=== PATIENT | female | born 1970 | race Caucasian/White ===

== ENCOUNTER 2017-03-28 14:59 | Emergency (ER) | payer MEDICAID, SELFPAY ==
[2017-03-28 17:23] VITALS: BP 176/100; PULSE 100; RESP 20; TEMP 36.8; O2SAT 100; BMI 28.7
--- NOTE | 2017-03-28 17:33 | XR_ITS ---
XR wrist RT min 3V HISTORY: Posttraumatic pain ITS.REASON: FELL ORDERING PHYSICIAN: Taty Felton PATIENT AGE: 46 years COMPARISON: None FINDINGS: There is a transverse mildly impacted fracture involving the distal radius 1 cm proximal to the articular surface is minimal dorsal angulation and there is 4 mm dorsal displacement of a dorsal fracture fragment. Nondisplaced distal ulnar fracture also noted 1 cm proximal to the articular surface well-circumscribed calcific density is present along the dorsal aspect of the mid wrist may be due to an old avulsion fracture. IMPRESSION: Mildly displaced distal radial fracture with nondisplaced distal ulnar fracture with mild impaction and dorsal angulation of the distal radial fracture fragment
--- NOTE | 2017-03-28 17:36 | HMH.EDUTC ---
[facility] [place] Clinical Impression: Right distal ulnar fracture Qualifiers: Encounter type: initial encounter Fracture type: closed Fracture morphology: unspecified fracture morphology Qualified Code(s): S52.601A - Unspecified fracture of lower end of right ulna, initial encounter for closed fracture Fracture of right distal radius Qualifiers: Encounter type: initial encounter Fracture type: closed Fracture morphology: unspecified fracture morphology Qualified Code(s): S52.501A - Unspecified fracture of the lower end of right radius, initial encounter for closed fracture Disposition: Home, Self-Care Condition on Discharge: Good Instructions: How to Use a Sling, DI for Wrist Fracture, How To Perform RICE (Rest, Ice, Compress, Elevate), How to Take Care of Your Splint Additional Instructions: * no use of right arm, your job is to keep that hand elevated at all times until you see ortho * Rest * ice 15-20 mins 3-4 times a day * splint until you see ortho. NOT to be removed. Read attached care instructions * Elevate as discussed as much as possible to help reduce swelling and therefore, pain * Ibuprofen every 6 hours as needed for pain and inflammation. If you need something more, you can take tylenol every 4 hours as needed as long as your primary care provider has told you it is ok to take both. Talk to your pain management doctor before taking additional medication due to your pain. Call ortho of your choice first thing tomorrow. Report in [facility]. Dx distal ulnar and radial fractures. Placed in orthoglass splint and told to follow up FRIEDA Referrals: Branden Reeves [Primary Care Provider] - ( Call ortho of your choice first thing tomorrow. If you can't get in, see primary care. Report in [facility]. Dx distal ulnar and radial fractures. Placed in orthoglass splint and told to follow up FRIEDA) Time of Disposition: 18:53 Medical Decision Making Vital Signs: 03/28/17 17:23 Temperature 98.3 F Temperature Source Temporal Artery Scan Pulse Rate [Left] 100 H Respiratory Rate 20 Blood Pressure [Right Arm] 176/100 Blood Pressure Mean [Right Arm] 125 Blood Pressure Source [Right Arm] Automatic Cuff Blood Pressure Position [Right Arm] Sitting 02 Sat by Pulse Oximetry 100 Oxygen Delivery Method Room Air Orders (Tests/Meds): ORDERS Category Date Time Status XR wrist RT min 3V Stat Exams 03/28/17 17:33 Taken - Radiology Data #1 Image(s): Wrist (right) xray was rvwd by me with BRUCE Douglas MD.....distal ulnar and radial fractures - Bryan Inquiry Pt receiving controlled substance: No [facility] - General Stated complaint: AO [id number] FELL HURT R WRIST Time Seen by Provider: 03/28/17 17:36 Mode of Arrival: Wheelchair Source of Information: Patient Limitations: Physical Limitations Description of Symptoms (Recalled from Triage Doc. by RN): FELL IN BATHROOM YESTERDAY, PAIN SWELLING RIGHT WRIST HEENT Symptoms (Recalled from RN notes): No Resp Symptoms (Recalled from RN notes): No Skin Symptoms (Recalled from RN notes): No MS Symptoms (Recalled from RN notes): Yes Functional Status (Recalled from RN notes): N - History of Present Illness Provider Complaint: c/o right wrist pain and swelling. reports she fell the night before last at 2am. On crutches due to a bad right hip that she is waiting on surgery for. Crutches slipped and she fell catching self with right hand. No immediate pain. I am on so much medication I guess it just didn't hurt and I went back to sleep . Reports so much swelling yesterday so she figured we wouldn't see anything on xray and instead of coming in, iced it at home. Denies N/T. Limited ROM all digits more because of the swelling then the pain . Initially reports taking all kind of medications for pain then later reports only taking ibuprofen. Home meds include clonazepam, clonidine, flexeril, dicolofena, furosemide, gabapentin, intelence, lamictal, norvir, zo
== END 2017-03-28 18:54 | disposition home or self-care (01) ==
PROVIDERS: Emergency Provider Nurse Practitioner Family; Family Provider Emergency Medicine; PCP Family Medicine
DX: S52.601A Unspecified fracture of lower end of right ulna, initial encounter for closed fracture (principal); S52.501A Unspecified fracture of the lower end of right radius, initial encounter for closed fracture; I10 Essential (primary) hypertension; F17.210 Nicotine dependence, cigarettes, uncomplicated; F41.8 Other specified anxiety disorders; Z79.899 Other long term (current) drug therapy; Z88.1 Allergy status to other antibiotic agents; Z88.6 Allergy status to analgesic agent; W01.0XXA Fall on same level from slipping, tripping and stumbling without subsequent striking against object, initial encounter; Y92.019 Unspecified place in single-family (private) house as the place of occurrence of the external cause
CPT/HCPCS: 29125; 73110; 99202; 99281

== ENCOUNTER 2017-04-24 09:28 | Emergency (ER) | payer MEDICAID, SELFPAY ==
[2017-04-24 09:40] VITALS: BP 145/94; PULSE 85; RESP 18; TEMP 36.8; O2SAT 98; BMI 27.3
--- NOTE | 2017-04-24 09:40 | HMH.EDGENADL ---
ED Disposition Clinical Impression: Fracture of wrist, Right distal ulnar fracture, Fracture of right distal radius, Multiple contusions Disposition: Home, Self-Care Condition on Discharge: Good Additional Instructions: Your orthopedic surgeon at the [facility] for further management and evaluation. Bring your disc. Continue to keep your splint in place. All current medications. - Critical Care Critical Care Time: No Attestation: On , the high probability of a clinically significant, sudden or life threatening deterioration of the following system(s) required my full and direct attention, intervention and personal management. The time I documented below is in addition to time spent performing reported procedures but includes the following listed in this critical care notation. Medical Decision Making Vital Signs: 04/24/17 09:40 Temperature 98.2 F Temperature Source Temporal Artery Scan Pulse Rate [Right Brachial] 85 Respiratory Rate 18 Blood Pressure [Right Arm] 145/94 Blood Pressure Mean [Right Arm] 111 Blood Pressure Source [Right Arm] Automatic Cuff Blood Pressure Position [Right Arm] Sitting 02 Sat by Pulse Oximetry 98 Oxygen Delivery Method Room Air - Lab Data Lab results reviewed: Yes: I reviewed the patient's lab results. - Radiology Data #1 Image(s): Wrist, Pelvis, Ankle Image Reviewed: Yes I reviewed the patient's radiology results, Yes I have reviewed radiologist's interpretation Preliminary Findings: Abnormal Avascular necrosis of right hip, with history of same. Acute fracture of left tibia with history of same. Right radius and ulna fractures with history of same, with reinjury today with minimal displacement;disc provided to patient so she may bring it to her orthopedic surgeon for further review. - Bryan Inquiry Pt receiving controlled substance: No General Adult HPI - General Stated complaint: ao 04/20/17 fell pain wrist hip pelvis left ankle Mode of Arrival: Ambulatory Source of Information: Patient Limitations: No Limitations - History of Present Illness HPI narrative: She states that she has a chronically dislocated right hip, for which she will undergo definitive surgery in May of this year at the [facility]. She is either in a power chair, uses a rolling walker, or crutches. Days that she fell 6 weeks ago and fractured her wrist, which is currently in a cast. [id number]. Has DJD with frequent falls. States fell 4 days ago while ambulating between house and car. She reports negative LOC. She is complaining of right wrist pain diffusely, chronic pelvis pain, and left ankle pain. No new neurological symptoms. Ambulatory with crutches. She is requesting refill for albuterol. He has no fever or chills. Flu symptoms. Has chronic cough. Chronic tobacco abuse until recently. 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 - Related Data Home Medications Medication Instructions Recorded Confirmed Cyclobenzaprine HCl [Flexeril 10mg 10 mg PO BID 03/28/17 03/28/17 tablet] LORazepam [Ativan] 0.5 mg PO BID 03/28/17 04/24/17 Allergies Allergy/AdvReac Type Severity Reaction Status Date / Time aspirin [ASPIRIN] Allergy Unknown TOLD TO Verified 03/28/17 17:31 AVOID R/T LIVER FUNCTION clindamycin [CLINDAMYCIN] Allergy Unknown I-HIVES Verified 03/28/17 17:31 meloxicam [MELOXICAM] Allergy Unknown TOLD TO Verified 03/28/17 17:31 AVOID D/T KIDNEY AND LIVER FUNCTION tramadol [TRAMADOL] Allergy Unknown SWELLS Verified 03/28/17 17:31 THROAT [facility] History Medical History: Denies:: Diabetes Mellitus Type 1, Diabetes Mellitus Type 2 - *Social History Smoking Status: Current every day smoker Tobacco Type: cigarettes Alcohol Intake: never ROS Obtained: Yes All systems reviewed & no additional complaints - Allergic/Immunologic Allergic/Immunologic: Reports other (History of chronic HI
--- NOTE | 2017-04-24 09:54 | ED_ITS ---
ED Disposition Clinical Impression: Fracture of wrist, Right distal ulnar fracture, Fracture of right distal radius , Multiple contusions Disposition: Home, Self-Care Condition on Discharge: Good Additional Instructions: Your orthopedic surgeon at the [facility] for further management and evaluation. Bring your disc. Continue to keep your splint in place. All current medications. - Critical Care Critical Care Time: No Attestation: On , the high probability of a clinically significant, sudden or life threatening deterioration of the following system(s) required my full and direct attention, intervention and personal management. The time I documented below is in addition to time spent performing reported procedures but includes the following listed in this critical care notation. Medical Decision Making Vital Signs: 04/24/17 09:40 Temperature 98.2 F Temperature Source Temporal Artery Scan Pulse Rate [Right Brachial] 85 Respiratory Rate 18 Blood Pressure [Right Arm] 145/94 Blood Pressure Mean [Right Arm] 111 Blood Pressure Source [Right Arm] Automatic Cuff Blood Pressure Position [Right Arm] Sitting 02 Sat by Pulse Oximetry 98 Oxygen Delivery Method Room Air - Lab Data Lab results reviewed: Yes: I reviewed the patient's lab results. - Radiology Data #1 Image(s): Wrist, Pelvis, Ankle Image Reviewed: Yes I reviewed the patient's radiology results, Yes I have reviewed radiologist's interpretation Preliminary Findings: Abnormal Avascular necrosis of right hip, with history of same. Acute fracture of left tibia with history of same. Right radius and ulna fractures with history of same, with reinjury today with minimal displacement;disc provided to patient so she may bring it to her orthopedic surgeon for further review. - Bryan Inquiry Pt receiving controlled substance: No General Adult HPI - General Stated complaint: ao 04/20/17 fell pain wrist hip pelvis left ankle Mode of Arrival: Ambulatory Source of Information: Patient Limitations: No Limitations - History of Present Illness HPI narrative: She states that she has a chronically dislocated right hip, for which she will undergo definitive surgery in May of this year at the [facility]. She is either in a power chair, uses a rolling walker, or crutches. Days that she fell 6 weeks ago and fractured her wrist, which is currently in a cast. [id number]. Has DJD with frequent falls. States fell 4 days ago while ambulating between house and car. She reports negative LOC. She is complaining of right wrist pain diffusely, chronic pelvis pain, and left ankle pain. No new neurological symptoms. Ambulatory with crutches. She is requesting refill for albuterol. He has no fever or chills. Flu symptoms. Has chronic cough. Chronic tobacco abuse until recently. 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 - Related Data Home Medications Medication Instructions Recorded Confirmed Cyclobenzaprine HCl [Flexeril 10mg 10 mg PO BID 03/28/17 03/28/17 tablet] LORazepam [Ativan] 0.5 mg PO BID 03/28/17 04/24/17 Allergies Allergy/AdvReac Type Severity Reaction Status Date / Time aspirin [ASPIRIN] Allergy Unknown TOLD TO Verified 03/28/17 17:31 AVOID R/T LIVER FUNCTION clindamycin [CLINDAMYCIN] Allergy Unknown I-HIVES Verified 03/28/17 17:31
--- NOTE | 2017-04-24 09:55 | XR_ITS ---
XR ankle LT min 3V HISTORY: Pain following injury ITS.REASON: fall ORDERING PHYSICIAN: Rola Hidalgo MD PATIENT AGE: 46 years COMPARISON: 01/04/2016 FINDINGS: There are no recent exams available for comparison. There is a nondisplaced fracture involving the anterior distal aspect of the tibia as well as the base of the medial malleolus. Mottled decreased density is present involving the anterior distal tibia and medial malleolus. Healing fractures noted involving the anterior distal tibia 3.7 cm proximal to the articular surface. Mottled decreased density involves the distal fibula as well as the calcaneus and tarsal bones which may be due to disuse osteoporosis. Please correlate with more recent exams which are not available at this institution. On the lateral view there is a fragment of the distal tibia which measures 13 x 9 mm slightly rotated. This involves articular surface of the distal tibia. IMPRESSION: Nondisplaced fractures of the distal tibia anteriorly and at the base of the medial malleolus. These do not appear hyperacute but may be subacute with an older fracture of the anterior distal tibia 4 cm proximal to the articular surface. Correlation with more recent older films is needed
--- NOTE | 2017-04-24 09:56 | XR_ITS ---
XR pelvis min 3V HISTORY: Right hip pain ITS.REASON: chronically dislocated R hip ORDERING PHYSICIAN: Rola Hidalgo MD PATIENT AGE: 46 years COMPARISON: 11/07/2016 FINDINGS: Patient has known avascular necrosis of the right femoral head which is somewhat progressed compared to the previous exam with further collapse of the femoral head. There is mild lateral subluxation of the femoral head is well more prominent on today's exam. The left hip has an unremarkable appearance. IMPRESSION: Worsening avascular necrosis of the right femoral head with increasing collapse of the femoral head with dystrophic changes and mild lateral subluxation of the femur.
--- NOTE | 2017-04-24 09:56 | XR_ITS ---
XR wrist RT min 3V HISTORY: Pain following 3 injury, patient with known fracture, prior close reduction ITS.REASON: fell with cast on ORDERING PHYSICIAN: Rola Hidalgo MD PATIENT AGE: 46 years COMPARISON: 03/28/2017 FINDINGS: Nondisplaced fractures are present involving the distal radius and ulna which are obscured by the overlying cast. The lateral aspect of the distal radial fracture appears slightly more displaced on today's exam compared to the previous study. There is a longitudinal component of the distal radial fracture does appear to extend into the articular surface distally which is also somewhat more prominent on today's exam. Distal ulnar fractures not significant change. IMPRESSION: Distal radial and ulnar fractures. There is now noted some mild lateral displacement of the distal arm fracture and a longitudinal fracture of the distal ulna is somewhat more apparent compared to the previous study. These findings suggest re-injury
[2017-04-24 12:21] VITALS: BP 113/93; PULSE 100; RESP 19; O2SAT 95
[2017-04-24 12:25] VITALS: BP 129/80; PULSE 82; RESP 16
== END 2017-04-24 12:24 | disposition home or self-care (01) ==
PROVIDERS: Emergency Provider Emergency Medicine; Family Provider Emergency Medicine; PCP Family Medicine
DX: S52.601A Unspecified fracture of lower end of right ulna, initial encounter for closed fracture (principal); S52.501A Unspecified fracture of the lower end of right radius, initial encounter for closed fracture; T07.XXXA Unspecified multiple injuries, initial encounter; R05 Cough; Z79.82 Long term (current) use of aspirin; F17.210 Nicotine dependence, cigarettes, uncomplicated; E10.9 Type 1 diabetes mellitus without complications
CPT/HCPCS: 72190; 73110; 73610; 99282

== ENCOUNTER → 2017-07-16 10:36 | Outpatient (CLI) | payer MEDICAID, SELFPAY ==
--- NOTE | 2017-07-16 10:38 | MM_ITS ---
. MM Dig screening mamm BI w/CAD CAD Screening ORDERING PHYSICIAN : Mian Jones MD PATIENT AGE: 47 years GENDER: Female COMPARISON: Previous mammograms: May 2012 and August 2011 INDICATION: 47-year-old. Takes estradiol 3 years.. No new complaints. Patient states has lost 33 pounds since previous mammogram in 2013 Family history. Maternal recommend mother and maternal aunt with breast cancer TECHNIQUE: Standard CC and MLO images were obtained. R2 CAD reviewed. FINDINGS: ===== Moderate fibroglandular elements throughout central breast bilateral. Overall Moderate breast density fibroglandular elements are less dense than on 2012 study. No dominant mass nor suspicious calcifications in either breast. Similar architecture pattern with no architectural distortion. RIGHT BREAST. No significant new findings Benign vascular and scattered dense benign calcifications.. LEFT BREAST:No significant new findings. Inhomogeneous architecture is similar to previous studies no new areas of significant concern IMPRESSION: ===== No new areas of significant concern either breast. Overall stable mammogram. Bilateral follow-up in one year recommended. BI-RADS Category: 1 Negative RECOMMENDED FOLLOW-UP: 1YR - 1 YEAR FOLLOW-UP (A letter has been sent to the patient regarding results of the study.)
== END ==
PROVIDERS: Family Provider Emergency Medicine; PCP Family Medicine; Visit Provider Obstetrics & Gynecology
DX: Z12.31 Encounter for screening mammogram for malignant neoplasm of breast (principal)
CPT/HCPCS: 77067

== ENCOUNTER 2017-09-02 09:31 | Outpatient (RCR) | payer MEDICAID, SELFPAY ==
--- NOTE | 2017-09-02 10:09 | HMH.PTOPEV ---
PT Outpatient Evaluation Rehab PT Outpatient Evaluation Start: 09/02/17 10:00 Freq: Status: Active Protocol: Document 09/02/17 10:00 SREEKANTH (Rec: 09/02/17 10:08 SREEKANTH [id number]) Electronically Signed By Roc Felton, PT 09/02/17 10:00 Outpatient Therapy Subjective History Subjective History Pt presents s/p R DANICA on for residual pain and weakness. Pt reports fx'ing L ankle ~2 weeks after sx. on R hip which has limited her ability to rehab the R hip. Pt reports 'I'm supposed to be getting a boot for the left ankle very soon' wich could allow for more functional activities. PMH:HIV, neuropathy, OA, osteoporosis Chief Complaint Pain Stiff Weakness Symptom Type Ache Throb Sharp Dull Symptoms Relieved By Rest/Positioning Heat Symptoms Aggravated By Standing Walking Prior Functional Limitations None Current Functional Limitations Housework Standing Walking Stairs Symptom Description Constant and Continuous Level of pain today (0-10) 10 Pain scale - at its best (0-10) 7 Pain scale - at its worst (0-10) 10 Hip/Knee Eval Gait Observation General Gait Pattern Observation Antalgic Gait Wide Based Gait Shuffling Step Decrease Weight Bear (L) Assistive Device Assistive Devices None / NA Palpation Tenderness right Knee Palpation Overall Comment 3/4 Hip Palpation Findings Tenderness MMT left Hip Flexion Strength Grade 4 Good Hip Abduction Strength Grade 4 Good Hip Adduction Strength Grade 4 Good Hip Extension Strength Grade 4 Good Knee Extension Strength Grade 5 Normal Knee Flexion Strength Grade 5 Normal right Hip Flexion Strength Grade 3 Fair Hip Abduction Strength Grade 3- Fair- Hip Adduction Strength Grade 3- Fair- Hip Extension Strength Grade 3 Fair Knee Extension Strength Grade 4 Good Knee Flexion Strength Grade 3+ Fair+ ROM left Hip Flexion w/Knee Flexed Active Range 0-90 of Motion (degrees)
== END 2017-09-02 09:32 | disposition home or self-care (01) ==
LOC: PT 09:31
PROVIDERS: Family Provider Emergency Medicine; PCP Emergency Medicine; Visit Provider Emergency Medicine
DX: M25.551 Pain in right hip (principal)
CPT/HCPCS: 97163

== ENCOUNTER 2017-12-17 09:30 | Outpatient (RCR) | payer MEDICAID, SELFPAY ==
--- NOTE | 2017-11-18 09:41 | HMH.PTOPEV ---
PT Outpatient Evaluation Rehab PT Outpatient Evaluation Start: 11/18/17 09:32 Freq: Status: Active Protocol: Document 11/18/17 09:33 SREEKANTH (Rec: 11/18/17 09:41 SREEKANTH [id number]) Electronically Signed By Roc Felton, PT 11/18/17 09:33 Outpatient Therapy Subjective History Subjective History Pt reports h/o B LE weakness d /t R DANICA 06/12/17, fx'd L ankle June 2017, and Fx'd R wrist August 2017. Pt reports injuries and sx. have decreased ability to tolerate wt. bearing activities, and have caused mm atrophy. Pt reports pain currently in R hip and L ankle. PMH:HIV, osteoporosis Chief Complaint Pain Weakness Symptom Type Ache Sharp Dull Symptoms Relieved By Prescription Meds Symptoms Aggravated By Standing Physical Activity Walking Lifting Prior Functional Limitations Lifting Housework Standing Walking Stairs Current Functional Limitations Lifting Housework Standing Walking Stairs Symptom Description Constant and Continuous Level of pain today (0-10) 9 Pain scale - at its best (0-10) 9 Pain scale - at its worst (0-10) 10 Hip/Knee Eval Gait Observation General Gait Pattern Observation Antalgic Gait Wide Based Gait Shuffling Step Assistive Device Assistive Devices Wheelchair Palpation Tenderness left Knee Palpation Finding Tenderness Knee Palpation Overall Comment L ANKLE 2-3/4 right Hip Palpation Findings Tenderness MMT bilateral Hip Flexion Strength Grade 3- Fair- Hip Abduction Strength Grade 3- Fair- Hip Adduction Strength Grade 3- Fair- Hip Extension Strength Grade 3 Fair Hip External Rotation Strength Grade 3+ Fair+ Hip Internal Rotation Strength Grade 3+ Fair+ Knee Extension Strength Grade 4 Good Knee Flexion Strength Grade 4- Good- ROM Hip Flexion w/Knee Flexed Passive Range 0-90 of Motion (degrees) Knee Extension Passive Range of Motion ( 0-120 degrees) Outpatient Therapy Ass
--- NOTE | 2017-12-17 09:52 | HMH.RHREAS ---
Rehab Reassessment Rehab OP Re-assessment Start: 12/17/17 09:47 Freq: Status: Active Protocol: Document 12/17/17 09:47 [email or web address] (Rec: 12/17/17 09:52 RADHALALY [id number]) Electronically Signed By Roc Felton, PT 12/17/17 09:47 Rehab Re-assessment Subjective Subjective PT REPORTS 6/10 PAIN IN B LE'S ON VAS, AND FEELS 40% BETTER OVERALL SINCE I EVAL Objective Objective Notes AROM: R HIP FLX 0-100 MMT: R HIP FLX 4/5, L HIP FLX 4+/5, KNEE EXT B 4+/5, B KNEE FLX 4+/5, L ANKLE DF 4/5, L ANKLE 4-/5 TTP: L ANKLE 2/4 TUSEC W/O AD Assessment Progress Assessment Progressing as Expected Assessment Notes PT W/IMPROVED STRENGTH, ROM , AND TTP Patient goals met STG'S 05/28 LTG'S 04/01 Goals Not Met STG'S 05/28, LTG'S 09/29 Plan Plan Pt to cont. w/skilled PT to make further improvements in ROM, strength, and TTP to allow for optimal function Frequency of Therapy 1-2x/wk Duration of therapy 3-4wks Time and Billing Re-Eval Time 15 Re-Eval Billing Units 1 PHYSICIAN CERTIFICATION: I certify the specified therapy services for Katiuska Vasquez are required, authorized, and reviewed every 30 days.
== END 2017-12-17 09:31 | disposition home or self-care (01) ==
LOC: PT 09:30
PROVIDERS: Family Provider Emergency Medicine; PCP Emergency Medicine; Visit Provider Emergency Medicine
DX: Z96.641 Presence of right artificial hip joint (principal); M25.551 Pain in right hip
CPT/HCPCS: 97110; 97163; 97164

== ENCOUNTER → 2018-06-09 13:55 | Outpatient (CLI) | payer MEDICAID, SELFPAY ==
[2018-06-09 14:39] LABS: Amphetamine/Metha Screen,Urine Negative ng/mL (<1000); Barbiturates Screen,Urine Negative ng/mL (<200); Benzodiazepines Screen,Urine Negative ng/mL (<200); Cannabinoid Screen,Urine Negative ng/mL (<50); Cocaine Screen,Urine Negative ng/mL (<300); Methadone Screen,Urine Negative ng/mL (<300); Opiate Screen,Urine Positive ng/mL (<300); Phencyclidine Screen,Urine Negative ng/mL (<25)
== END ==
PROVIDERS: Visit Provider Emergency Medicine
DX: Z79.899 Other long term (current) drug therapy (principal)
CPT/HCPCS: 80305

== ENCOUNTER 2020-11-27 17:22 | Emergency (ER) | payer MEDICAID, SELFPAY ==
[2020-11-27 17:30] VITALS: BP 226/131; PULSE 111; RESP 20; TEMP 36.8; O2SAT 98; BMI 21.6
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
--- NOTE | 2020-11-27 17:56 | PC.NURSE ---
PATIENT SENT TO ER PER Sven MOSHER APRN FOR FURTHER EVALUATION
[2020-11-27 18:00] VITALS: BP 174/88; PULSE 87; RESP 20; TEMP 36.7; O2SAT 99; BMI 21.9
--- NOTE | 2020-11-27 19:32 | ECG_ITS ---
APPROVED REPORT Exam: Resting ECG HR:74 bpm ECG Measurements Heart Rate 74 AXES AZ 132 P 60 QRSd 82 QRS 63 QT 410 T 60 QTc 455 Conclusion Normal sinus rhythm Possible Left atrial enlargement Left ventricular hypertrophy Abnormal ECG Electronically signed by : Nikos Wilson MD 11/28/2020 20:39:39
--- NOTE | 2020-11-27 19:35 | HMH.EDGENADL ---
ED Disposition Clinical Impression: Anxiety, Acute anxiety Disposition: Home, Self-Care Condition on Discharge: Fair Instructions: Anxiety Disorders Referrals: Flaco Ayoub MD [Primary Care Provider] - - Critical Care Critical Care Time: No Attestation: On 11/27/20, the high probability of a clinically significant, sudden or life threatening deterioration of the following system(s) required my full and direct attention, intervention and personal management. The time I documented below is in addition to time spent performing reported procedures but includes the following listed in this critical care notation. Medical Decision Making - Bryan Inquiry Pt receiving controlled substance: No Vital Signs: 11/27/20 17:30 11/27/20 18:00 Temperature 98.2 F 98.1 F Temperature Source Temporal Artery Scan Oral Pulse Rate [Left Brachial] 111 H 87 Respiratory Rate 20 20 Blood Pressure [Left Arm] 226/131 H 174/88 H Blood Pressure Mean [Left Arm] 162 116 Blood Pressure Source [Left Arm] Automatic Cuff Blood Pressure Position [Left Arm] Sitting 02 Sat by Pulse Oximetry 98 99 Oxygen Delivery Method Room Air Room Air - Lab Data Lab Results 11/27/20 19:45: WBC 6.9, RBC 3.62 L, Hgb 13.4, Hct 40.1, MCV 110.8 H, MCH 37.0 H, MCHC 33.4, RDW 13.0, Plt Count 161, MPV 8.3, Neut % (Auto) 56.7, Lymph % (Auto) 37.4, Noble % (Auto) 3.9, Eos % (Auto) 1.5, Baso % (Auto) 0.5, Neut # (Auto) 3.9, Lymph # (Auto) 2.6, Noble # (Auto) 0.3, Eos # (Auto) 0.1, Baso # (Auto) 0.0 11/27/20 19:45: Sodium 142, Potassium 3.6, Chloride 104, Carbon Dioxide 26, Anion Gap 15.6 H, BUN 10, Creatinine 0.60, Estimated Creat Clear 100, Estimated GFR 106, Est GFR ( Amer) 128, Glucose 96, Calcium 9.0, Total Bilirubin 0.2, AST 30, ALT 26, Alkaline Phosphatase 87, Troponin I < 0.01, Total Protein 7.8, Albumin 4.3, Globulin 3.5 H, Albumin/Globulin Ratio 1.2 11/27/20 19:45: D-Dimer 0.40 Result diagrams: 11/27/20 19:45 11/27/20 19:45 Orders (Tests/Meds): ED MEDICATIONS Generic Name Dose Route Start Last Admin Trade Name Freq PRN Reason Stop Dose Admin Sodium Chloride 10 ml 11/27/20 19:32 Sodium Chloride 0.9% 10ml Vial IV 12/27/20 19:31 NEEDED PRN to Dilute Lorazepam inj Discontinued Medications Generic Name Dose Route Start Last Admin Trade Name Freq PRN Reason Stop Dose Admin Lorazepam 2 mg 11/27/20 19:32 11/27/20 19:38 Lorazepam 2mg/Ml Vial IV 11/27/20 19:33 2 mg ONCE ONE Administration ORDERS Category Date Time Status Troponin I Q3H Lab 11/27/20 22:45 Ordered Troponin I Q3H Lab 11/28/20 01:45 Ordered ECG Request by /Glenna Stat Y 11/27/20 19:32 Stop Req - SOFY Score for Non-Stemi Age of Patient: 50-59 years old Heart Rate: 110-149 bpm Systolic Blood Pressure: 160-199 mmHg Serum Creatinine: 0.40-0.79 mg/dl CHF [place] Class: I-No CHF Other Risk Factors: None Non-Stemi Risk Score: 79 General Adult HPI - General Chief complaint: Anxiety Stated complaint: anxiety attack Time Seen by Provider: 11/27/20 17:44 Mode of Arrival: Ambulatory Source of Information: Patient Limitations: No Limitations Description of Symptoms (Recalled from ER Triage Doc. by RN): PT C/O ANXIETY & PANIC ATTACKS x2 WEEKS. STATES SHE RECENTLY MOVED HERE 4 DAYS AGO & IT HAS BEEN A STRESSFUL TIME. HX PSYCH - History of Present Illness HPI narrative: His presenting to the emergency department with chief complaint of anxiety. Patient states that she when she gets anxious her chest hurts. She noticed a fluttering in her chest, feels like her heart is beating rapidly. She is also complaining of left-sided chest pain. She does have some associated dyspnea, but has had no cough. Chest pain occurs when she gets anxious, but she does not notice it with exertion. She was previously on clonidine however she was taken off it about 3 weeks ago. She does have a psychiatrist in [place] who recently told her to start taking r
[2020-11-27 19:53] LABS: Basophils % 0.5 % (0.1-2.0); Eosinophils # 0.1 K/mm3 (0.0-0.4); Eosinophils % 1.5 % (0.1-12.0); Hematocrit 40.1 % (37.0-47.0); Hemoglobin 13.4 g/dL (12.2-16.2); Lymphocytes # 2.6 K/mm3 (0.7-4.5); Lymphocytes % 37.4 % (10-50); Mean Corpuscular HGB Conc 33.4 g/dL (31.8-35.4); Mean Corpuscular Volume 110.8 fl (81-99); Mean Platelet Volume 8.3 fl (7.4-10.4); Monocytes # 0.3 K/mm3 (0.1-1.0); Monocytes % 3.9 % (1.7-9.3); Neutrophils # 3.9 K/mm3 (1.8-7.8); Neutrophils % 56.7 % (37.0-80.0); Platelet Count 161 K/mm3 (142-424); Red Blood Count 3.62 M/mm3 (4.20-5.40); White Blood Count 6.9 K/mm3 (4.8-10.8)
[2020-11-27 20:00] LABS: Alanine Aminotransferase 26 U/L (12-78); Albumin Level 4.3 g/dl (3.5-5.0); Albumin/Globulin Ratio 1.2 (1.1-1.8); Alkaline Phosphatase 87 U/L (38-126); Anion Gap 15.6 mEq/L (5-15); Aspartate Amino Transferase 30 U/L (14-36); Bilirubin,Total 0.2 mg/dl (0.2-1.3); Blood Urea Nitrogen 10 mg/dl (7-17); Carbon Dioxide 26 mmol/L (22.0-30.0); Chloride 104 mmol/L (98-107); Creatinine Clearance Estimated 100 mL/min (50-200); Estimated Glomerular Filt Rate 106 ml/min (>60); GFR (African American) 128 ML/MIN (>60); Globulin 3.5 g/dL (1.3-3.2); Glucose 96 mg/dl (74-100); Potassium 3.6 mmoL/L (3.5-5.1); Sodium 142 mmol/L (136-145); Total Protein,Serum 7.8 g/dl (6.3-8.2)
[2020-11-27 20:17] LABS: Troponin I < 0.01 ng/ml (0.00-0.034)
[2020-11-27 20:39] VITALS: BP 143/74; PULSE 79; RESP 20; TEMP 36.7; O2SAT 99
== END 2020-11-27 20:44 | disposition home or self-care (01) ==
LOC: UTC 17:37 → ER 17:46
PROVIDERS: Emergency Provider Emergency Medicine; PCP Emergency Medicine
DX: F41.8 Other specified anxiety disorders (principal); F43.0 Acute stress reaction; K21.9 Gastro-esophageal reflux disease without esophagitis; I25.2 Old myocardial infarction; F17.290 Nicotine dependence, other tobacco product, uncomplicated; Z79.899 Other long term (current) drug therapy
CPT/HCPCS: 80053; 84484; 85025; 85378; 93005; 96375; 99283

== ENCOUNTER 2020-11-30 14:17 | Emergency (ER) | payer MEDICAID, SELFPAY ==
[2020-11-30 14:19] VITALS: BP 200/100; PULSE 110; RESP 20; TEMP 36.4; O2SAT 98; BMI 21.9
--- NOTE | 2020-11-30 14:19 | HMH.EDANX ---
ED Disposition Clinical Impression: Anxiety Alcohol intoxication Qualifiers: Complication of substance-induced condition: uncomplicated Qualified Code(s): F10.920 - Alcohol use, unspecified with intoxication, uncomplicated Disposition: Home, Self-Care Condition on Discharge: Fair Instructions: Anxiety Disorders, DI for Alcohol Use Disorder Referrals: Provider,Referral, MD [Primary Care Provider] - 7-14 days - Critical Care Critical Care Time: No Attestation: On , the high probability of a clinically significant, sudden or life threatening deterioration of the following system(s) required my full and direct attention, intervention and personal management. The time I documented below is in addition to time spent performing reported procedures but includes the following listed in this critical care notation. Medical Decision Making - Medical Records Medical records reviewed: Yes: I reviewed the patient's medical records. - Bryan Inquiry Pt receiving controlled substance: No Vital Signs: 11/30/20 14:19 11/30/20 15:00 Temperature 97.6 F Temperature Source Oral Pulse Rate 110 H Pulse Rate [Left Radial] 110 H Respiratory Rate 20 Blood Pressure 128/73 Blood Pressure [Right Arm] 200/100 H Blood Pressure Mean 91 Blood Pressure Mean [Right Arm] 133 Blood Pressure Source [Right Arm] Automatic Cuff Blood Pressure Position [Right Arm] Sitting 02 Sat by Pulse Oximetry 98 97 Oxygen Delivery Method Room Air - Lab Data Lab Results 11/30/20 14:30: WBC 10.6 D, RBC 3.93 L, Hgb 14.4, Hct 43.4, MCV 110.4 H, MCH 36.7 H, MCHC 33.2, RDW 13.2, Plt Count 241 D, MPV 8.5, Neut % (Auto) 50.7, Lymph % (Auto) 44.7, [place] % (Auto) 3.3, Eos % (Auto) 0.6, Baso % (Auto) 0.6, Neut # (Auto) 5.4, Lymph # (Auto) 4.7 H, Bath # (Auto) 0.4, Eos # (Auto) 0.1, Baso # (Auto) 0.1 11/30/20 14:30: Sodium 143, Potassium 4.3, Chloride 107, Carbon Dioxide 21 L, Anion Gap 19.3 H, BUN 7 D, Creatinine 0.50 L, Estimated Creat Clear 120, Estimated GFR 131, Est GFR ( Amer) 158 D, Glucose 147 H, Calcium 9.3, Total Bilirubin 0.3, AST 34, ALT 21, Alkaline Phosphatase 81, Total Protein 8.1, Albumin 4.5, Globulin 3.6 H, Albumin/Globulin Ratio 1.3 11/30/20 14:30: Plasma/Serum Alcohol 245 H 11/30/20 14:30: TSH 2.12, Free T4 Index 2.4 L, Thyroxine (T4) 8.8, T3 Uptake 27 11/30/20 17:20: Urine Color Straw, Urine Appearance Clear, Urine pH 6.0, Ur Specific [place] <= 1.005, Urine Protein Negative, Urine Glucose (UA) Negative, Urine Ketones Negative, Urine Blood Negative, Urine Nitrate Negative, Urine Bilirubin Negative, Urine Urobilinogen 0.2, Ur Leukocyte Esterase Negative, Urine RBC None, Urine WBC None, Ur Squamous Epith Cells None, Urine Bacteria None 11/30/20 17:20: Urine Opiates Screen Negative, Urine Methadone Screen Negative, Ur Barbituates Screen Negative, Ur Phencyclidine Scrn Negative, Ur Amphetamines Screen Negative, U Benzodiazepines Scrn Negative, Urine Cocaine Screen Negative, U Marijuana (THC) Screen Negative Result diagrams: 11/30/20 14:30 11/30/20 14:30 Orders (Tests/Meds): ED MEDICATIONS Discontinued Medications Generic Name Dose Route Start Last Admin Trade Name Rob PRN Reason Stop Dose Admin Acetaminophen 650 mg 11/30/20 17:16 11/30/20 17:17 Acetaminophen 325mg Tab PO 11/30/20 17:17 650 mg ONCE ONE Administration Haloperidol Lactate 3 mg 11/30/20 14:23 11/30/20 14:36 Haloperidol Lactate 5 Mg/Ml Vial IV 11/30/20 14:24 3 mg ONCE ONE Administration - Reevaluation(s) Time: 15:36 Reevaluation #1: Does not resting comfortably. It seems that she has had a favorable response to the 3 mg of Haldol given to her. Medical Decision Narrative: The patient had her work-up in the emergency department which did not reveal any life-threatening or dangerous conditions. The patient appears to be intoxicated with alcohol. A urine drug screen was negative. The remainder of her work-up was unremarkabl
[2020-11-30 14:53] LABS: Basophils # 0.1 K/mm3 (0-0.2); Basophils % 0.6 % (0.1-2.0); Eosinophils # 0.1 K/mm3 (0.0-0.4); Eosinophils % 0.6 % (0.1-12.0); Hematocrit 43.4 % (37.0-47.0); Hemoglobin 14.4 g/dL (12.2-16.2); Lymphocytes # 4.7 K/mm3 (0.7-4.5); Lymphocytes % 44.7 % (10-50); Mean Corpuscular HGB Conc 33.2 g/dL (31.8-35.4); Mean Corpuscular Hemoglobin 36.7 pg (27.0-31.2); Mean Corpuscular Volume 110.4 fl (81-99); Mean Platelet Volume 8.5 fl (7.4-10.4); Monocytes # 0.4 K/mm3 (0.1-1.0); Monocytes % 3.3 % (1.7-9.3); Neutrophils # 5.4 K/mm3 (1.8-7.8); Neutrophils % 50.7 % (37.0-80.0); Platelet Count 241 K/mm3 (142-424); Red Blood Count 3.93 M/mm3 (4.20-5.40); Red Cell Distribution Width 13.2 % (11.5-17.5); White Blood Count 10.6 K/mm3 (4.8-10.8)
[2020-11-30 14:55] LABS: Chloride 107 mmol/L (98-107); Potassium 4.3 mmoL/L (3.5-5.1); Sodium 143 mmol/L (136-145)
[2020-11-30 14:57] LABS: Alanine Aminotransferase 21 U/L (12-78); Aspartate Amino Transferase 34 U/L (14-36); Blood Urea Nitrogen 7 mg/dl (7-17); Estimated Glomerular Filt Rate 131 ml/min (>60); GFR (African American) 158 ML/MIN (>60)
[2020-11-30 14:58] LABS: Albumin Level 4.5 g/dl (3.5-5.0); Albumin/Globulin Ratio 1.3 (1.1-1.8); Alkaline Phosphatase 81 U/L (38-126); Anion Gap 19.3 mEq/L (5-15); Bilirubin,Total 0.3 mg/dl (0.2-1.3); Calcium 9.3 mg/dl (8.4-10.2); Carbon Dioxide 21 mmol/L (22.0-30.0); Ethyl Alcohol 245 mg/dl (0-10); Globulin 3.6 g/dL (1.3-3.2); Glucose 147 mg/dl (74-100); Total Protein,Serum 8.1 g/dl (6.3-8.2)
[2020-11-30 15:00] VITALS: BP 128/73; PULSE 110; O2SAT 97
[2020-11-30 15:00] LABS: Creatinine Clearance Estimated 120 mL/min (50-200)
[2020-11-30 15:30] LABS: Free Thyroxine Index 2.4 ug/dL (5.93-13.13); T4 (Thyroxine) 8.8 ug/dl (5.53-11.0); Triiodothryronine (T3) Uptake 27 % (23.5-40.5)
[2020-11-30 15:43] LABS: Thyroid Stimulating Hormone 2.12 uIU/mL (0.465-4.68)
--- NOTE | 2020-11-30 16:21 | PC.NURSE ---
Pt went to the bathroom and then threw her hat with urine in the trash. Unable to collect at this time
[2020-11-30 17:30] LABS: Microscopic, Urine URINE MICROSCOPIC (MICROSCOPIC)
[2020-11-30 17:32] LABS: Appearance,Urine CLEAR (Clear); Bilirubin,Urine Negative (Negative); Blood, Urine Negative (Negative); Color,Urine STRAW (Yellow); Glucose,Urine (UA) Negative (Negative); Ketones,Urine Negative (Negative); Leukocyte Esterase,Urine Negative (Negative); Nitrate,Urine Negative (Negative); Protein,Urine Negative (Negative); Specific Gravity, Urine <= 1.005 (1.005-1.030); Urobilinogen,Urine 0.2 EU/dl (0.2)
[2020-11-30 17:45] LABS: Amphetamine/Metha Screen,Urine Negative ng/ml (<1000); Barbiturates Screen,Urine Negative ng/ml (<200)
[2020-11-30 17:46] LABS: Benzodiazepines Screen,Urine Negative ng/ml (<200); Cannabinoid Screen,Urine Negative ng/ml (<50)
[2020-11-30 17:47] LABS: Cocaine Screen,Urine Negative ng/ml (<300)
[2020-11-30 17:48] LABS: Methadone Screen,Urine Negative ng/ml (<300); Opiate Screen,Urine Negative ng/ml (<300)
[2020-11-30 17:49] LABS: Phencyclidine Screen,Urine Negative ng/ml (<25)
[2020-11-30 19:09] VITALS: BP 183/100; PULSE 76; RESP 20; TEMP 36.7; O2SAT 99
== END 2020-11-30 19:10 | disposition home or self-care (01) ==
PROVIDERS: Emergency Provider Emergency Medicine
DX: F10.120 Alcohol abuse with intoxication, uncomplicated (principal); Y90.8 Blood alcohol level of 240 mg/100 ml or more; F41.8 Other specified anxiety disorders; K21.9 Gastro-esophageal reflux disease without esophagitis; I25.2 Old myocardial infarction; Z21 Asymptomatic human immunodeficiency virus [HIV] infection status; F17.210 Nicotine dependence, cigarettes, uncomplicated; Z79.899 Other long term (current) drug therapy
CPT/HCPCS: 80053; 80305; 81001; 84436; 84443; 84479; 85025; 96374; 99282

== ENCOUNTER 2020-12-02 14:29 | Emergency (ER) | payer MEDICAID, SELFPAY ==
[2020-12-02 14:31] VITALS: BP 177/97; PULSE 91; RESP 18; TEMP 36.7; O2SAT 97; BMI 22.4
--- NOTE | 2020-12-02 15:10 | PC.NURSE ---
Pt keeps coming out of room stating that she needs something to occupy herself because she is going into a panic attack. Explained to pt that we had several pt's in here and gave her some suggestions to help calm herself down. Asked pt to please stay in her room for her safety as she is shaky at this time. Ensured pt that MD would be in to see her as soon as he could.
--- NOTE | 2020-12-02 16:10 | PC.NURSE ---
pt given warm blanket
--- NOTE | 2020-12-02 16:49 | HMH.EDGENADL ---
ED Disposition Clinical Impression: Anxiety Disposition: Home, Self-Care Condition on Discharge: Good Additional Instructions: Klonopin twice a day as prescribed. See Dr. Sheets or Dr. Ayoub in the office on 12/05/2020 at 10 AM or 1 PM. I will not refill any prescriptions or write any new prescriptions for anxiety medications or other controlled substances for you in this emergency department. Additional instructions for CONTROLLED SUBSTANCES: You have been prescribed a medication that is a controlled substance. Controlled substances include pain medications known as opiates and sedative nerve medications known as benzodiazepines. Tramadol, fioricet, and gabapentin are also controlled substances. Some common opiates include: Codeine (such as Tylenol #3) Hydrocodone (Vicodin, Lortab, Lorcet, [place]) Oxycodone (Percocet, Percodan, Oxycodone, Oxy IR) Some common benzodiazepines include: Diazepam (Valium) Lorazepam (Ativan) Alprazolam (Xanax) Clonazepam (Klonopin) Oxazepam (Serax) All of these controlled substances are highly addictive and frequently abused. Misuse can and frequently does lead to addiction as well as overdose and . Medication should be stored in a locked cabinet or other secure storage unit. Do not store the medication in a motor vehicle. Short term supplies, 3 days or less, are prescribed because of the highly addictive nature of the medication. Any of the controlled substance medication NOT taken should be disposed of properly and NOT SAVED. The recommended method of disposing of unused medications is: Place the medicines in a sealable plastic bag. If the medicine is a solid, crush it or add water to dissolve it. Add something undesirable (cat litter, coffee grounds, etc.) Dispose of sealed bag in household trash Do not flush or pour unused medicines down a sink or drain. Controlled substances should not be shared, given away or sold. Because of the addictive nature and frequent abuse, these medications are sometimes stolen. These medications should be kept in a safe place where they cannot be stolen. Do not keep them in your car or purse. Lost or stolen prescriptions for controlled substances WILL NOT BE REFILLED in this emergency department, regardless of whether a police report was filed. Prescriptions: clonazePAM [Clonazepam] 1 mg PO BID #6 tablet Transmission Status: Sent to [id number] Referrals: Flaco Ayoub MD [Primary Care Provider] - - Critical Care Critical Care Time: No Attestation: On 12/02/20, the high probability of a clinically significant, sudden or life threatening deterioration of the following system(s) required my full and direct attention, intervention and personal management. The time I documented below is in addition to time spent performing reported procedures but includes the following listed in this critical care notation. Medical Decision Making - Medical Records Medical records reviewed: Yes: I reviewed the patient's medical records. MR Comment: This is the patient's third visit to this emergency department for these symptoms. On her last visit 2 days ago she also had alcohol intoxication. Emergency department notes reviewed. Extensive cardiopulmonary work-up on both of those 2 visits. - Bryan Inquiry Pt receiving controlled substance: Yes Bryan was queried for this patient: Yes Risks and benefits of using a controlled substance: were discussed with pt by me Vital Signs: 12/02/20 14:31 Temperature 98.0 F Temperature Source Oral Pulse Rate [Right Radial] 91 H Respiratory Rate 18 Blood Pressure [Right Arm] 177/97 H Blood Pressure Mean [Right Arm] 123 Blood Pressure Source [Right Arm] Automatic Cuff Blood Pressure Position [Right Arm] Sitting 02 Sat by Pulse Oximetry 97 Oxygen Delivery Method Room Air - Physician Consults Physician Consulted: Sudeep Comment/Response: Prescribe clonidine 1 mg twice da
--- NOTE | 2020-12-02 17:37 | PC.NURSE ---
Dr Hess speaking with Dr Sheets
[2020-12-02 17:58] VITALS: BP 164/93; PULSE 94; RESP 20; TEMP 36.7; O2SAT 95
== END 2020-12-02 17:58 | disposition home or self-care (01) ==
PROVIDERS: Emergency Provider Emergency Medicine; PCP Emergency Medicine
DX: F41.0 Panic disorder [episodic paroxysmal anxiety] (principal); F41.8 Other specified anxiety disorders; K21.9 Gastro-esophageal reflux disease without esophagitis; I25.2 Old myocardial infarction; M79.672 Pain in left foot; F17.290 Nicotine dependence, other tobacco product, uncomplicated
CPT/HCPCS: 99281

== ENCOUNTER → 2020-12-09 14:30 | Outpatient (CLI) | payer MEDICAID, SELFPAY ==
[2020-12-09 16:32] LABS: Amphetamine/Metha Screen,Urine Negative ng/ml (<1000); Barbiturates Screen,Urine Negative ng/ml (<200)
[2020-12-09 16:33] LABS: Benzodiazepines Screen,Urine Negative ng/ml (<200); Cannabinoid Screen,Urine Negative ng/ml (<50)
[2020-12-09 16:34] LABS: Cocaine Screen,Urine Negative ng/ml (<300)
[2020-12-09 16:35] LABS: Methadone Screen,Urine Negative ng/ml (<300); Opiate Screen,Urine Negative ng/ml (<300)
[2020-12-09 16:36] LABS: Phencyclidine Screen,Urine Negative ng/ml (<25)
== END ==
PROVIDERS: Visit Provider Family Medicine
DX: Z79.899 Other long term (current) drug therapy (principal)
CPT/HCPCS: 80305

== ENCOUNTER → 2020-12-19 09:40 | Outpatient (CLI) | payer MEDICAID, SELFPAY ==
--- NOTE | 2020-12-19 09:44 | XR_ITS ---
PROCEDURE: XR ANKLE LT MIN 3V CLINICAL INDICATION: pain COMPARISON: CR ANKL3 ANKLE-LT-3 VIEWS from 01/04/2016 CR ANKCMLT XR ankle LT min 3V from 04/24/2017 CR ANKCMLT XR ankle LT min 3V from 07/21/2017 FINDINGS: Status post ankle joint fusion. A prominent lucent area is present in the central aspect the tibial talar fusion. This is nonspecific. This could represent a prominent subchondral cyst. An area of osteomyelitis/Jorge's abscess is also consideration. There are no recent postsurgical exams available for review to determine if this is acute or chronic. There are osteoarthritic changes at the posterior subtalar joint and there is cortical irregularity of the anterior aspect of the calcaneus. This could also be postsurgical, inflammatory, or due to osteomyelitis. There has been amputation of the distal aspect of the fibula. Intramedullary area of calcification noted at the midshaft of the tibia. Postsurgical changes of the tibia noted. IMPRESSION: Status post ankle joint fusion at the tibial talar joint with prominent lucency centrally measuring 1.6 x 1.7 cm and could represent an area postsurgical change, subchondral cystic area, or an area of osteomyelitis/Jorge's abscess. Severe osteoarthritic changes posterior subtalar joint Cortical irregularity anterior aspect of the calcaneus which could be post surgical, posttraumatic or inflammatory, or due to infection. Please correlate with most recent postsurgical exam unavailable at the time of this reading. Dictated by: Ahbay Glass MD 12/19/2020 11:40 Abhay Glass MD in [place] 12/19/2020 11:40
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
== END ==
PROVIDERS: PCP Family Medicine; Visit Provider Family Medicine
DX: M25.572 Pain in left ankle and joints of left foot (principal); M25.531 Pain in right wrist
CPT/HCPCS: 73110; 73610

== ENCOUNTER → 2021-01-09 16:31 | Outpatient (CLI) | payer MEDICAID, SELFPAY ==
[2021-01-09 16:50] LABS: Basophils % 0.2 % (0.1-2.0); Eosinophils # 0.2 K/mm3 (0.0-0.4); Eosinophils % 2.2 % (0.1-12.0); Hematocrit 39.9 % (37.0-47.0); Hemoglobin 13.3 g/dL (12.2-16.2); Lymphocytes # 3.1 K/mm3 (0.7-4.5); Lymphocytes % 39.9 % (10-50); Mean Corpuscular HGB Conc 33.4 g/dL (31.8-35.4); Mean Corpuscular Hemoglobin 36.1 pg (27.0-31.2); Mean Corpuscular Volume 108.3 fl (81-99); Monocytes # 0.4 K/mm3 (0.1-1.0); Monocytes % 4.6 % (1.7-9.3); Neutrophils # 4.2 K/mm3 (1.8-7.8); Neutrophils % 53.4 % (37.0-80.0); Platelet Count 307 K/mm3 (142-424); Red Blood Count 3.68 M/mm3 (4.20-5.40); Red Cell Distribution Width 13.3 % (11.5-17.5); White Blood Count 7.8 K/mm3 (4.8-10.8)
[2021-01-09 18:10] LABS: Chloride 108 mmol/L (98-107); Sodium 138 mmol/L (136-145)
[2021-01-09 18:11] LABS: Potassium 4.8 mmoL/L (3.5-5.1)
[2021-01-09 18:13] LABS: Alanine Aminotransferase 22 U/L (12-78); Alkaline Phosphatase 115 U/L (38-126); Aspartate Amino Transferase 36 U/L (14-36); Bilirubin,Total 0.2 mg/dl (0.2-1.3); Blood Urea Nitrogen 17 mg/dl (7-17); Estimated Glomerular Filt Rate 76 ml/min (>60); GFR (African American) 92 ML/MIN (>60)
[2021-01-09 18:14] LABS: Albumin Level 4.1 g/dl (3.5-5.0); Albumin/Globulin Ratio 1.2 (1.1-1.8); Anion Gap 13.8 mEq/L (5-15); Calcium 9.5 mg/dl (8.4-10.2); Carbon Dioxide 21 mmol/L (22.0-30.0); Globulin 3.4 g/dL (1.3-3.2); Glucose 104 mg/dl (74-100); Total Protein,Serum 7.5 g/dl (6.3-8.2)
[2021-01-09 18:44] LABS: Thyroid Stimulating Hormone 2.65 uIU/mL (0.465-4.68)
[2021-01-09 20:21] LABS: Vitamin B12 414 pg/mL (239-931)
== END ==
PROVIDERS: Visit Provider Specialist
DX: B20 Human immunodeficiency virus [HIV] disease (principal); M54.2 Cervicalgia; R20.0 Anesthesia of skin; R20.2 Paresthesia of skin; R41.3 Other amnesia; W19.XXXA Unspecified fall, initial encounter; Z72.0 Tobacco use; Z87.828 Personal history of other (healed) physical injury and trauma
CPT/HCPCS: 36415; 80053; 82607; 82746; 84443; 85025

== ENCOUNTER → 2021-01-11 09:52 | Outpatient (CLI) | payer MEDICAID, SELFPAY | PROVIDERS: PCP Family Medicine; Visit Provider Specialist | DX: B20 Human immunodeficiency virus [HIV] disease (principal); M54.2 Cervicalgia; R20.0 Anesthesia of skin; R20.2 Paresthesia of skin; R41.3 Other amnesia; Z87.828 Personal history of other (healed) physical injury and trauma; Z72.0 Tobacco use; W19.XXXA Unspecified fall, initial encounter | CPT/HCPCS: 95816 ==

== ENCOUNTER → 2021-01-12 13:03 | Outpatient (CLI) | payer MEDICAID, SELFPAY ==
--- NOTE | 2021-01-12 13:04 | CT_ITS ---
PROCEDURE: CT CHEST WO CON CLINICAL INDICATION: lung nodule COMPARISON: CT CHESTW CT chest w con from 04/23/2018 TECHNIQUE: Axial images obtained with sagittal and coronal reformats. All CT scans at the facility use one or more dose reduction, viz: automated exposure control, ma/kV adjustment per patient size (including targeted exams where dose is matched to indication, i.e. head), or iterative reconstruction technique. FINDINGS: HEART AND MEDIASTINAL STRUCTURES: There are few small mediastinal lymph nodes not significantly changed. No mediastinal or hilar mass or adenopathy. LUNGS AND PLEURAL SPACES: COPD changes with centrilobular emphysema. There is evidence of old granulomatous disease with a calcified granuloma in the right lower lobe. Small pneumatocele is present in the left lower lobe unchanged. There has been resolution of the previously described alveolar disease and bilateral effusions. No suspicious nodule is evident. There is some minimal fissural thickening in the left major fissure inferiorly BONY STRUCTURES: There is an old fracture involving the body of the sternum and there are old bilateral rib fractures. UPPER ABDOMEN: Unremarkable. ADDITIONAL FINDINGS: There is some nonspecific calcification in the breast bilaterally. If the patient has not had a recent mammogram then would suggest mammogram for further evaluation. There is no record of a previous mammogram at this institution. IMPRESSION: 1. COPD changes with centrilobular emphysema with resolution of the airspace disease and effusions compared to the previous exam. No suspicious pulmonary nodule evident. 2. Old fracture of the body of the sternum and old bilateral rib fractures. 3. Nonspecific calcifications of both breasts. Suggest mammogram for further evaluation if no recent mammogram has been performed. Dictated by: Abhay Glass MD 01/13/2021 07:35 Abhay Glass MD in [place] 01/13/2021 07:35
== END ==
PROVIDERS: PCP Family Medicine; Visit Provider Family Medicine
DX: R91.1 Solitary pulmonary nodule (principal)
CPT/HCPCS: 71250

== ENCOUNTER 2021-01-12 13:29 | Emergency (ER) | payer MEDICAID, SELFPAY ==
[2021-01-12 14:01] VITALS: BP 150/76; PULSE 70; RESP 14; TEMP 36.6; O2SAT 99; BMI 24.4
--- NOTE | 2021-01-12 14:29 | XR_ITS ---
PROCEDURE: XR ANKLE LT 2V CLINICAL INDICATION: fall COMPARISON: CR ANKL3 ANKLE-LT-3 VIEWS from 01/04/2016 CR ANKCMLT XR ankle LT min 3V from 04/24/2017 CR ANKCMLT XR ankle LT min 3V from 07/21/2017 CR XR ANKLE LT MIN 3V from 12/19/2020 FINDINGS: Postsurgical changes with prior distal fibular amputation. There has been fusion the talotibial joint. Osteosclerosis is present at the subtalar joint. No acute fracture or dislocation is evident. There remains cortical irregularity of the distal aspect of the calcaneus along the plantar surface. Prominent lucency noted at the distal tibia centrally unchanged. IMPRESSION: Postsurgical changes. No change with no acute finding. Dictated by: Abhay Glass MD 01/12/2021 16:06 Abhay Glass MD in [place] 01/12/2021 16:06
--- NOTE | 2021-01-12 14:29 | XR_ITS ---
PROCEDURE: XR KNEE LT 3V CLINICAL INDICATION: fall COMPARISON: CR KNEE3L KNEE-3 VIEWS-LT from 06/05/2013 CR [id number] KNEE-LIMITED 2 VIEWS-RT from 04/19/2015 CR [id number] KNEE-LIMITED 2 VIEWS-LT from 04/19/2015 FINDINGS: There is severe osteoarthritic changes of the knee greatest at the lateral compartment and patellofemoral joint. Prominent osteophytes are present. There is a posterior and lateral loose body. The osteoarthritic changes have progressed since 04/19/2015. IMPRESSION: Severe osteoarthritis of the left knee which has progressed since the previous exam with loose bodies Dictated by: Abhay Glass MD 01/12/2021 16:04 Abhay Glass MD in [place] 01/12/2021 16:04
--- NOTE | 2021-01-12 14:29 | XR_ITS ---
PROCEDURE: XR WRIST RT MIN 3V CLINICAL INDICATION: fall Posttraumatic pain COMPARISON: CR WRISTCMRT XR wrist RT min 3V from 03/28/2017 CR WRISTCMRT XR wrist RT min 3V from 04/24/2017 CR WRISTCMRT XR wrist RT min 3V from 10/07/2017 CR XR WRIST RT W SCAPHOID from 12/19/2020 FINDINGS: There is an old distal radial fracture. Osteoarthritic changes are present. There appears to be an old posterior lunate avulsion injury.. There remains flattening and sclerosis of the lunate as previously described. Other findings:None. IMPRESSION: No change no acute finding. Dictated by: Abhay Glass MD 01/12/2021 16:03 Abhay Glass MD in [place] 01/12/2021 16:03
--- NOTE | 2021-01-12 14:32 | HMH.EDUTC ---
[facility] [place] Impression: Arthritis of knee, left Sprain of wrist, right Qualifiers: Encounter type: initial encounter Qualified Code(s): S63.501A - Unspecified sprain of right wrist, initial encounter Strain of ankle, right Qualifiers: Encounter type: initial encounter Qualified Code(s): S96.911A - Strain of unspecified muscle and tendon at ankle and foot level, right foot, initial encounter Disposition: Home, Self-Care Condition on Discharge: Good Instructions: DI for Wrist Strain, Osteoarthritis, DI for Ankle Sprain Additional Instructions: Weightbearing as tolerated rest Ice with cold pack for 20 minutes remove may repeat for comfort every hour Romel wrap for support and swelling no less in the shower. Be sure not too tight but not to lose either Elevate with leg and wrist above your heart as much as possible to help reduce swelling and therefore pain Ibuprofen every 6 hours as needed for pain or inflammation. If needs something more you can take Tylenol every 4 hours as needed as long as her primary care has told he was okayed for you to take both. If improving any do not need to follow-up you can bring begin exercising 2-3 weeks after injury. Follow-up immediately if new or worsening symptoms or no noticeable improvement over the next 3-5 days. call ortho Referrals: Nestor Sheets MD [Primary Care Provider] - Frieda Viveros DPM [Staff Physician] - As needed (ankle pain) Samuel Yu MD [Staff Physician] - As needed (knee pain) Time of Disposition: 16:30 Medical Decision Making - Bryan Inquiry Pt receiving controlled substance: No Vital Signs: 01/12/21 14:01 Temperature 97.8 F Temperature Source Oral Pulse Rate [Left Radial] 70 Respiratory Rate 14 Blood Pressure [Left Arm] 150/76 H Blood Pressure Mean [Left Arm] 100 Blood Pressure Source [Left Arm] Automatic Cuff Blood Pressure Position [Left Arm] Sitting 02 Sat by Pulse Oximetry 99 Oxygen Delivery Method Room Air [facility] [place] - General Chief complaint: Urgent [facility] Stated complaint: AO fall swollen right wrist, and knee and ankle Time Seen by Provider: 01/12/21 14:32 Mode of Arrival: Ambulatory Source of Information: Patient Limitations: No Limitations Description of Symptoms (Recalled from Triage Doc. by RN): Pt c/o frequent falls r/t known ankle and wrist fractures. Pt c/o pain. Pt states I need something for support HEENT Symptoms (Recalled from RN notes): No Resp Symptoms (Recalled from RN notes): No Skin Symptoms (Recalled from RN notes): No MS Symptoms (Recalled from RN notes): Yes (falls and pain) Functional Status (Recalled from RN notes): n/a - History of Present Illness Provider Complaint: 50 yr old female presents for rt wrist pain, left knee and ankle pain. pt states she fell 4 days ago. - Related Data Home Medications Medication Instructions Recorded Confirmed lidocaine 5 % topical ointment 1 applic TOPICAL QHS 10/09/17 01/12/21 Inhaler, Assist Devices 0 inh .ROUTE .MEDSUPPLY 04/23/18 01/12/21 [Francisco LAROSE] alendronate 70 mg tablet 70 mg PO WEEKLY 12/09/20 01/12/21 bictegravir 50 mg-emtricitabine 1 tab PO DAILY 12/09/20 01/12/21 200 mg-tenofovir alafenam 25 mg tablet doravirine 100 mg tablet 100 mg PO DAILY 12/09/20 01/12/21 ferrous sulfate 325 mg (65 mg 325 mg PO tab 12/19/20 01/12/21 iron) tablet Previous Rx's Medication Instructions Recorded estradiol 2 mg tablet 2 mg PO DAILY #90 tab 12/05/17 cholecalciferol (vitamin D3) 10 400 unit PO QAM #90 tab 01/06/18 mcg (400 unit) tablet Ondansetron [Zofran 4mg ODT] 4 mg PO TIDP PRN #16 tab.rapdis 04/23/18 celecoxib 200 mg capsule 200 mg PO BID #180 cap 05/06/18 ibuprofen 800 mg tablet 800 mg PO TID #90 tab 12/09/20 ferrous fumarate 325 mg (106 mg 325 mg PO BID #60 tab 12/12/20 iron) tablet gabapentin 800 mg tablet 800 mg PO TID PRN #45 tab 12/12/20 lidocaine 5 % topical patch 1 patch TOPICAL DAILY #15 each 12/12/20 methoc
[2021-01-12 16:34] VITALS: BP 150/76; PULSE 70; RESP 14; TEMP 36.6; O2SAT 99
== END 2021-01-12 16:39 | disposition home or self-care (01) ==
PROVIDERS: Emergency Provider Nurse Practitioner Family; PCP Family Medicine
DX: S63.501A Unspecified sprain of right wrist, initial encounter (principal); S96.911A Strain of unspecified muscle and tendon at ankle and foot level, right foot, initial encounter; M17.12 Unilateral primary osteoarthritis, left knee; W01.0XXA Fall on same level from slipping, tripping and stumbling without subsequent striking against object, initial encounter; Y92.019 Unspecified place in single-family (private) house as the place of occurrence of the external cause; K21.9 Gastro-esophageal reflux disease without esophagitis; I10 Essential (primary) hypertension; M81.0 Age-related osteoporosis without current pathological fracture; M79.7 Fibromyalgia; I25.2 Old myocardial infarction; F17.210 Nicotine dependence, cigarettes, uncomplicated; Z79.899 Other long term (current) drug therapy
CPT/HCPCS: 73110; 73562; 73600; 99202; G0463

== ENCOUNTER → 2021-01-26 13:50 | Outpatient (CLI) | payer MEDICAID, SELFPAY ==
[2021-01-26 14:33] LABS: Barbiturates Screen,Urine Negative ng/ml (<200)
[2021-01-26 14:34] LABS: Benzodiazepines Screen,Urine Negative ng/ml (<200)
[2021-01-26 14:35] LABS: Amphetamine/Metha Screen,Urine Negative ng/ml (<1000); Cocaine Screen,Urine Negative ng/ml (<300)
[2021-01-26 14:36] LABS: Cannabinoid Screen,Urine Negative ng/ml (<50); Methadone Screen,Urine Negative ng/ml (<300)
[2021-01-26 14:37] LABS: Opiate Screen,Urine Negative ng/ml (<300)
[2021-01-26 14:38] LABS: Phencyclidine Screen,Urine Negative ng/ml (<25)
== END ==
PROVIDERS: Visit Provider Family Medicine
DX: Z09 Encounter for follow-up examination after completed treatment for conditions other than malignant neoplasm (principal)
CPT/HCPCS: 80305

== ENCOUNTER 2021-02-08 21:14 | Emergency (ER) | payer MEDICAID, SELFPAY ==
[2021-02-08 21:14] VITALS: BP 119/83; PULSE 90; RESP 20; TEMP 37.1; O2SAT 98; BMI 22.6
--- NOTE | 2021-02-08 21:30 | HMH.EDMCLR ---
ED Disposition Clinical Impression: Medical clearance for incarceration Disposition: Home, Self-Care Condition on Discharge: Good Instructions: DI for Alcohol Use Disorder Additional Instructions: see pcp for follow up Referrals: Provider,Referral, [Primary Care Provider] - - Critical Care Critical Care Time: No Attestation: On 02/08/21, the high probability of a clinically significant, sudden or life threatening deterioration of the following system(s) required my full and direct attention, intervention and personal management. The time I documented below is in addition to time spent performing reported procedures but includes the following listed in this critical care notation. Medical Decision Making - Medical Records Medical records reviewed: Yes: I reviewed the patient's medical records. - Bryan Inquiry Pt receiving controlled substance: No Vital Signs: 02/08/21 21:14 Temperature 98.7 F Temperature Source Oral Pulse Rate [Apical] 90 Respiratory Rate 20 Blood Pressure [Right Arm] 119/83 Blood Pressure Mean [Right Arm] 95 Blood Pressure Source [Right Arm] Automatic Cuff Blood Pressure Position [Right Arm] Supine 02 Sat by Pulse Oximetry 98 Oxygen Delivery Method Room Air Medical Clearance HPI - General Chief complaint: Medical Clearance Stated complaint: medical clearance Time Seen by Provider: 02/08/21 21:30 Mode of Arrival: Ambulatory Source of Information: Patient, Medical Record Limitations: No Limitations Description of Symptoms (Recalled from ER Triage Doc. by RN): Patient here for medical clearance. Patient has no complaints - History of Present Illness HPI Narrative: no specific c/o MD complaint: medical clearance requested Onset (ago): hour(s) Reason for Medical Clearance: intoxication Place: street Alleged Intoxication: Yes Traumatic Symptoms: denies traumatic injury Associated Symptoms: denies other symptoms Treatments Prior to Arrival: none Home medications: Home Medications Medication Instructions Recorded Confirmed lidocaine 5 % topical ointment 1 applic TOPICAL QHS 10/09/17 01/26/21 Inhaler, Assist Devices 0 inh .ROUTE .MEDSUPPLY 04/23/18 01/26/21 [Aerochzeke MV] Previous Rx's Medication Instructions Recorded cholecalciferol (vitamin D3) 10 400 unit PO QAM #90 tab 01/06/18 mcg (400 unit) tablet Ondansetron [Zofran 4mg ODT] 4 mg PO TIDP PRN #16 tab.rapdis 04/23/18 ibuprofen 800 mg tablet 800 mg PO TID #90 tab 12/09/20 lidocaine 5 % topical patch 1 patch TOPICAL DAILY #15 each 12/12/20 albuterol sulfate 90 mcg/actuation 1 puff INHALATION Q6H PRN #6.7 g 01/30/21 aerosol inhaler alendronate 70 mg tablet 70 mg PO WEEKLY #14 tab 01/30/21 aripiprazole 15 mg tablet 15 mg PO DAILY #90 tab 01/30/21 celecoxib 200 mg capsule 200 mg PO BID #180 cap 01/30/21 estradiol 2 mg tablet 2 mg PO DAILY #90 tab 01/30/21 hydroxyzine pamoate 50 mg capsule 50 mg PO BID #60 cap 01/30/21 lamotrigine 150 mg tablet 150 mg PO QHS #30 tab 01/30/21 methocarbamol 750 mg tablet 750 mg PO TID #90 tab 01/30/21 metoprolol succinate 100 mg 100 mg PO DAILY #90 tab 01/30/21 tablet,extended release 24 hr pantoprazole 40 mg tablet,delayed 40 mg PO DAILY #90 tab 01/30/21 release prazosin 1 mg capsule 1 mg PO HS #90 cap 01/30/21 ropinirole 2 mg tablet 3 mg PO TID #180 tab 01/30/21 bictegravir 50 mg-emtricitabine 1 tab PO DAILY #90 tab 01/31/21 200 mg-tenofovir alafenam 25 mg tablet doravirine 100 mg tablet 100 mg PO DAILY #90 tab 01/31/21 clonazepam 1 mg tablet 1 mg PO BID #30 tab 02/02/21 gabapentin 800 mg tablet 800 mg PO TID PRN #45 tab 02/03/21 ferrous sulfate 325 mg (65 mg 325 mg PO DAILY #30 tab 02/06/21 iron) tablet Allergies/Adverse reactions: Allergies Allergy/AdvReac Type Severity Reaction Status Date / Time aspirin [ASPIRIN] Allergy Unknown TOLD TO Verified 01/26/21 10:18 AVOID R/T LIVER FUNCTION clindamycin [CLINDAMYCIN] Allergy Unknown
[2021-02-08 21:36] VITALS: BP 119/86; PULSE 88; RESP 22; TEMP 37.1; O2SAT 97
== END 2021-02-08 21:40 | disposition home or self-care (01) ==
PROVIDERS: Emergency Provider Emergency Medicine
DX: F10.10 Alcohol abuse, uncomplicated (principal); F41.8 Other specified anxiety disorders; I10 Essential (primary) hypertension; I25.2 Old myocardial infarction; M81.0 Age-related osteoporosis without current pathological fracture; M79.7 Fibromyalgia
CPT/HCPCS: 99282

== ENCOUNTER 2021-11-02 18:37 | Emergency (ER) | payer SELFPAY ==
[2021-11-02 18:40] VITALS: BP 215/98; PULSE 110; RESP 16; TEMP 37.1; O2SAT 99; BMI 28.1
--- NOTE | 2021-11-02 19:00 | HMH.EDGENADL ---
ED Disposition Condition on Discharge: Good - Critical Care Critical Care Time: No <Zen Hess - Last Filed: 11/02/21 20:09> <Flaco Ayoub - Last Filed: 11/02/21 21:32> Clinical Impression: Weakness, Suicidal ideation Hypertension Qualifiers: Hypertension type: primary hypertension Qualified Code(s): I10 - Essential (primary) hypertension Ribs, multiple fractures Qualifiers: Encounter type: subsequent encounter Fracture type: closed Laterality: right Fracture healing: with routine healing Qualified Code(s): S22.41XD - Multiple fractures of ribs, right side, subsequent encounter for fracture with routine healing Disposition: Xfer Psychiatric Hosp Referrals: Nestor Sheets MD [Primary Care Provider] - Attestation: On 11/02/21, the high probability of a clinically significant, sudden or life threatening deterioration of the following system(s) required my full and direct attention, intervention and personal management. The time I documented below is in addition to time spent performing reported procedures but includes the following listed in this critical care notation. Medical Decision Making - Bryan Inquiry Pt receiving controlled substance: No <Zen Hess - Last Filed: 11/02/21 20:09> - Medical Records Medical records reviewed: Yes: I reviewed the patient's medical records. - Lab Data Lab results reviewed: Yes: I reviewed the patient's lab results. Result diagrams: 11/02/21 20:43 11/02/21 20:43 - ECG Data Tracing #1 Normal Sinus Rhythm: Yes Ischemic changes: non-specific ST-T wave changes <Flaco Ayoub - Last Filed: 11/02/21 21:32> Vital Signs: 11/02/21 18:40 11/02/21 19:02 11/02/21 19:30 Temperature 98.8 F Temperature Source Oral Pulse Rate 98 H 92 H Pulse Rate [Radial] 110 H Respiratory Rate 16 Blood Pressure 172/81 H 160/81 H Blood Pressure [Right Arm] 215/98 H Blood Pressure Mean [Right Arm] 137 Blood Pressure Position [Right Arm] Sitting 02 Sat by Pulse Oximetry 99 100 99 Oxygen Delivery Method Room Air Room Air Room Air - Lab Data Lab Results 11/02/21 18:55: Urine Color Yellow, Urine Appearance Clear, Urine pH 6.5, Ur Specific [place] <= 1.005, Urine Protein Negative, Urine Glucose (UA) Negative, Urine Ketones Negative, Urine Blood Negative, Urine Nitrate Negative, Urine Bilirubin Negative, Urine Urobilinogen 0.2, Ur Leukocyte Esterase Negative, Urine RBC None, Urine WBC Occasional, Ur Squamous Epith Cells Occasional, Urine Bacteria None 11/02/21 18:55: Urine Opiates Screen Negative, Urine Methadone Screen Negative, Ur Barbituates Screen Negative, Ur Phencyclidine Scrn Negative, Ur Amphetamines Screen Negative, U Benzodiazepines Scrn Negative, Urine Cocaine Screen Negative, U Marijuana (THC) Screen Negative 11/02/21 19:49: SARS-CoV-2 (PCR) Not detected, Influenza A Untype (PCR) Not detected, Influenza Type B (PCR) Not detected 11/02/21 20:43: Troponin I < 0.01, Salicylates < 1.0 L, Acetaminophen < 10 L 11/02/21 20:43: WBC 6.4, RBC 4.01 L, Hgb 13.2, Hct 40.4, MCV 100.9 H, MCH 32.8 H, MCHC 32.5, RDW 14.0, Plt Count 195, MPV 8.6, Neut % (Auto) 58.8, Lymph % (Auto) 34.5, Butts % (Auto) 5.0, Eos % (Auto) 1.1, Baso % (Auto) 0.6, Neut # (Auto) 3.8, Lymph # (Auto) 2.2, Butts # (Auto) 0.3, Eos # (Auto) 0.1, Baso # (Auto) 0.0 11/02/21 20:43: Sodium 140, Potassium 3.1 L, Chloride 109 H, Carbon Dioxide 22, Anion Gap 12.1, BUN 3 L, Creatinine 0.60, Estimated Creat Clear 126, Estimated GFR 105, Est GFR ( Amer) 128, Glucose 92, Calcium 9.3, Total Bilirubin 0.3, AST 44 H, ALT 30, Alkaline Phosphatase 131 H, Total Protein 9.1 H, Albumin 4.6, Globulin 4.5 H, Albumin/Globulin Ratio 1.0 L 11/02/21 20:43: Plasma/Serum Alcohol < 10 Orders (Tests/Meds): ED MEDICATIONS Discontinued Medications Generic Name Dose Route Start Last Admin Trade Name Freq PRN Reason Stop Dose Admin Metoprolol Succinate 100 mg 11/02/21 19:51 11/02/21 20:37 Metoprolol Succina
[2021-11-02 19:02] VITALS: BP 172/81; PULSE 98; O2SAT 100
[2021-11-02 19:07] LABS: Microscopic, Urine URINE MICROSCOPIC (MICROSCOPIC)
[2021-11-02 19:14] LABS: Appearance,Urine CLEAR (Clear); Bilirubin,Urine Negative (Negative); Blood, Urine Negative (Negative); Color,Urine YELLOW (Yellow); Glucose,Urine (UA) Negative (Negative); Ketones,Urine Negative (Negative); Leukocyte Esterase,Urine Negative (Negative); Nitrate,Urine Negative (Negative); PH,Urine 6.5 (5.0-8.5); Protein,Urine Negative (Negative); Specific Gravity, Urine <= 1.005 (1.005-1.030); Urobilinogen,Urine 0.2 EU/dl (0.2)
[2021-11-02 19:30] VITALS: BP 160/81; PULSE 92; O2SAT 99
[2021-11-02 19:30] LABS: Squamous Epithelial Cell,Urine Occasional #/hpf (0-5); WBC,Urine Occasional #/hpf (0-3)
--- NOTE | 2021-11-02 19:31 | XR_ITS ---
PROCEDURE INFORMATION: Exam: XR Chest Exam date and time: 11/02/2021 7:37 PM Age: 51 years old Clinical indication: Pain; Right-sided; Additional info: Rib pain, suicidal TECHNIQUE: Imaging protocol: Radiologic exam of the chest. Views: 2 views. COMPARISON: CT CHEST WO CON 01/12/2021 1:15 PM FINDINGS: Lungs: Unchanged right lung granulomas. Bilateral apical scarring. Pleural spaces: Unremarkable. No pleural effusion. No pneumothorax. Heart/Mediastinum: Unremarkable. No cardiomegaly. Bones/joints: Displaced right 6th, 8th, and 9 rib fractures are age-indeterminate. Possible acute right 2nd and 3rd rib fractures. Chronic sternal fracture. IMPRESSION: Displaced right 6th, 8th, and 9 rib fractures are age-indeterminate. Possible acute right 2nd and 3rd rib fractures. Please correlate with point tenderness.
--- NOTE | 2021-11-02 19:44 | PC.NURSE ---
Pt gone to RAD for XRAY
--- NOTE | 2021-11-02 19:47 | PC.NURSE ---
Pt back from RAD
--- NOTE | 2021-11-02 19:50 | PC.NURSE ---
Pt changed into gown and all belongings put into a pt belonging bag
[2021-11-02 19:54] LABS: Coronavirus 19, PCR Not Detected (NotDetected); Influenza A, PCR Not Detected (NotDetected); Influenza B, PCR Not Detected (NotDetected)
--- NOTE | 2021-11-02 19:59 | PC.NURSE ---
pt put in gown per SI precaution
--- NOTE | 2021-11-02 20:02 | ECG_ITS ---
APPROVED REPORT Exam: Resting ECG HR:85 bpm ECG Measurements Heart Rate 85 AXES TN 134 P 66 QRSd 73 QRS 70 QT 366 T 72 QTc 409 Conclusion SINUS RHYTHM NORMAL ECG UNCONFIRMED REPORT Electronically signed by : Nikos Wilson MD 11/03/2021 21:40:44
--- NOTE | 2021-11-02 20:26 | PC.NURSE ---
paper work for involuntary hold for [facility] send to judge montaño @ this time
[2021-11-02 20:52] LABS: Basophils % 0.6 % (0.1-2.0); Eosinophils # 0.1 K/mm3 (0.0-0.4); Eosinophils % 1.1 % (0.1-12.0); Hematocrit 40.4 % (37.0-47.0); Hemoglobin 13.2 g/dL (12.2-16.2); Lymphocytes # 2.2 K/mm3 (0.7-4.5); Lymphocytes % 34.5 % (10-50); Mean Corpuscular HGB Conc 32.5 g/dL (31.8-35.4); Mean Corpuscular Hemoglobin 32.8 pg (27.0-31.2); Mean Corpuscular Volume 100.9 fl (81-99); Mean Platelet Volume 8.6 fl (7.4-10.4); Monocytes # 0.3 K/mm3 (0.1-1.0); Neutrophils # 3.8 K/mm3 (1.8-7.8); Neutrophils % 58.8 % (37.0-80.0); Platelet Count 195 K/mm3 (142-424); Red Blood Count 4.01 M/mm3 (4.20-5.40); White Blood Count 6.4 K/mm3 (4.8-10.8)
[2021-11-02 21:00] LABS: Alanine Aminotransferase 30 U/L (12-78); Albumin Level 4.6 g/dl (3.5-5.0); Alkaline Phosphatase 131 U/L (38-126); Anion Gap 12.1 mEq/L (5-15); Aspartate Amino Transferase 44 U/L (14-36); Bilirubin,Total 0.3 mg/dl (0.2-1.3); Blood Urea Nitrogen 3 mg/dl (7-17); Calcium 9.3 mg/dl (8.4-10.2); Carbon Dioxide 22 mmol/L (22.0-30.0); Chloride 109 mmol/L (98-107); Creatinine Clearance Estimated 126 mL/min (50-200); Estimated Glomerular Filt Rate 105 ml/min (>60); GFR (African American) 128 ML/MIN (>60); Globulin 4.5 g/dL (1.3-3.2); Glucose 92 mg/dl (74-100); Potassium 3.1 mmoL/L (3.5-5.1); Sodium 140 mmol/L (136-145); Total Protein,Serum 9.1 g/dl (6.3-8.2)
[2021-11-02 21:01] LABS: Acetaminophen < 10 ug/ml (10-30); Salicylate < 1.0 mg/dL (2.0-20.0)
[2021-11-02 21:09] LABS: Benzodiazepines Screen,Urine Negative ng/ml (<200)
[2021-11-02 21:10] LABS: Amphetamine/Metha Screen,Urine Negative ng/ml (<1000); Barbiturates Screen,Urine Negative ng/ml (<200)
[2021-11-02 21:11] LABS: Cannabinoid Screen,Urine Negative ng/ml (<50); Cocaine Screen,Urine Negative ng/ml (<300)
[2021-11-02 21:12] LABS: Methadone Screen,Urine Negative ng/ml (<300)
[2021-11-02 21:13] LABS: Opiate Screen,Urine Negative ng/ml (<300); Phencyclidine Screen,Urine Negative ng/ml (<25)
[2021-11-02 21:18] LABS: Ethyl Alcohol < 10 mg/dl (0-10); Troponin I < 0.01 ng/ml (0.00-0.034)
--- NOTE | 2021-11-02 21:28 | PC.NURSE ---
contacted dispatch to notified pt is ready for transport to [facility]
--- NOTE | 2021-11-02 21:47 | PC.NURSE ---
reprted called to salvador at [facility]
[2021-11-02 21:48] VITALS: BP 159/78; PULSE 90; RESP 16; TEMP 37.1; O2SAT 99
--- NOTE | 2021-11-03 02:47 | PC.NURSE ---
RECEIVED PHONE CALL FROM INTAKE AT [facility]. FAXED PAPERWORK TO THEM AT THEIR REQUEST RE: PATIENT VISIT. STATED THEY RECEIVED SOME BUT NOT ALL OF WHAT THEY NEEDED.
== END 2021-11-02 21:50 ==
PROVIDERS: Emergency Provider Emergency Medicine; PCP Family Medicine
DX: I10 Essential (primary) hypertension (principal); S22.41XD Multiple fractures of ribs, right side, subsequent encounter for fracture with routine healing; Z88.1 Allergy status to other antibiotic agents; Z88.6 Allergy status to analgesic agent; Z88.8 Allergy status to other drugs, medicaments and biological substances; M81.0 Age-related osteoporosis without current pathological fracture; I25.2 Old myocardial infarction; K21.9 Gastro-esophageal reflux disease without esophagitis; F41.9 Anxiety disorder, unspecified; F32.A Depression, unspecified; M19.90 Unspecified osteoarthritis, unspecified site; G89.4 Chronic pain syndrome
CPT/HCPCS: 71046; 80053; 80305; 80329; 81001; 84484; 85025; 93005; 99283; C9803; U0003; U0005

== ENCOUNTER 2021-11-04 13:02 | Emergency (ER) | payer MEDICAID, SELFPAY ==
[2021-11-04 13:25] VITALS: BP 185/91; PULSE 87; RESP 17; TEMP 36.8; O2SAT 97; BMI 27.3
--- NOTE | 2021-11-04 13:32 | HMH.EDUTC ---
[facility] [place] Clinical Impression: Removal of yoko Migraine headache Qualifiers: Migraine type: unspecified Status migrainosus presence: without status migrainosus Intractability: not intractable Qualified Code(s): G43.909 - Migraine, unspecified, not intractable, without status migrainosus Disposition: Home, Self-Care Condition on Discharge: Good Instructions: Migraine -- Adult, DI for Migraine Additional Instructions: Drink plenty of fluids. Take the medications as directed. Follow up with your regular doctor. GO TO THE ER FOR ANY WORSENING SYMPTOMS Keep the affected area clean on your head. Follow up with your regular doctor. GO TO THE ER FOR ANY WORSENING SYMPTOMS Prescriptions: Mupirocin [Bactroban 2% Ointment 22gm tube] 1 applicatio TP TID 7 Days #1 gm Transmission Status: Received by [facility] [employer] Referrals: Nestor Sheets MD [Primary Care Provider] - Time of Disposition: 14:25 Medical Decision Making - Medical Records Medical records reviewed: No: I reviewed the patient's medical records. - Bryan Inquiry Pt receiving controlled substance: No Vital Signs: 11/04/21 13:25 11/04/21 14:28 Temperature 98.3 F 98.3 F Temperature Source Oral Pulse Rate 87 Pulse Rate [Left] 87 Respiratory Rate 17 17 Blood Pressure 185/91 H Blood Pressure [Right Arm] 185/91 H Blood Pressure Mean [Right Arm] 122 02 Sat by Pulse Oximetry 97 Orders (Tests/Meds): ED MEDICATIONS Discontinued Medications Generic Name Dose Route Start Last Admin Trade Name Rob PRN Reason Stop Dose Admin Ketorolac Tromethamine 60 mg 11/04/21 14:07 11/04/21 14:19 Ketorolac 60mg/2ml Vial IM 11/04/21 14:08 60 mg ONCE ONE Administration Methylprednisolone Sodium Succinate 125 mg 11/04/21 14:07 11/04/21 14:18 Methylprednisolone Sod Succ 125mg Vial IM 11/04/21 14:08 125 mg ONCE ONE Administration Promethazine HCl 25 mg 11/04/21 14:07 11/04/21 14:18 Promethazine Hcl 25mg/Ml 1ml Vial IM 11/04/21 14:08 25 mg ONCE ONE Administration Sodium Chloride 25 ml 11/04/21 14:07 11/04/21 14:19 Sodium Chloride 0.9% 25ml Bag IV 11/04/21 14:08 2 ml ONCE ONE Administration [facility] [place] - General Stated complaint: Suture removal Time Seen by Provider: 11/04/21 13:32 Mode of Arrival: Ambulatory Source of Information: Patient Limitations: No Limitations Description of Symptoms (Recalled from Triage Doc. by RN): patient comes in to get yoko removed and get pain under control HEENT Symptoms (Recalled from RN notes): Yes Resp Symptoms (Recalled from RN notes): No Skin Symptoms (Recalled from RN notes): Yes MS Symptoms (Recalled from RN notes): No Functional Status (Recalled from RN notes): n/A - History of Present Illness Provider Complaint: She has a history of migraine headache. 2 days ago received a laceration to her occipital area. After the wound was stapled, she was transferred to long term. She got out of long term today and came here to have the yoko removed and to possibly be treated for her migraine that started this morning. - Related Data Home Medications Medication Instructions Recorded Confirmed lidocaine 5 % topical ointment 1 applic TOPICAL QHS 10/09/17 11/06/21 Inhaler, Assist Devices 0 inh .ROUTE .MEDSUPPLY 04/23/18 11/06/21 [Aerochambaruna MV] Previous Rx's Medication Instructions Recorded ibuprofen 800 mg tablet 800 mg PO TID #90 tab 12/09/20 lidocaine 5 % topical patch 1 patch TOPICAL DAILY #15 each 12/12/20 hydroxyzine pamoate 50 mg capsule 50 mg PO BID #60 cap 01/30/21 methocarbamol 750 mg tablet 750 mg PO TID #90 tab 01/30/21 gabapentin 800 mg tablet 800 mg PO TID PRN #45 tab 02/03/21 Mupirocin [Bactroban 2% Ointment 1 applicatio TP TID 7 Days #1 gm 11/04/21 22gm tube] acetaminophen 300 mg-codeine 30 mg 1 tab PO TID PRN #90 tab 11/06/21 tablet albuterol sulfate 90 mcg/actuation 1 puff INHALATION Q6H PRN #6.7
[2021-11-04 14:28] VITALS: BP 185/91; PULSE 87; RESP 17; TEMP 36.8
--- NOTE | 2021-11-04 14:30 | PC.NURSE ---
4 yoko were removed during this visit. patient states that 6 were placed, but only 4 were removed
== END 2021-11-04 14:31 | disposition home or self-care (01) ==
PROVIDERS: Emergency Provider Nurse Practitioner Family; PCP Family Medicine
DX: G43.909 Migraine, unspecified, not intractable, without status migrainosus (principal); Z48.02 Encounter for removal of sutures
CPT/HCPCS: 96372; 99283

== ENCOUNTER → 2021-11-06 06:16 | Outpatient (CLI) | payer SELFPAY ==
[2021-11-06 17:20] LABS: Amphetamine/Metha Screen,Urine Negative ng/ml (<1000)
[2021-11-06 17:21] LABS: Barbiturates Screen,Urine Negative ng/ml (<200); Benzodiazepines Screen,Urine Negative ng/ml (<200)
[2021-11-06 17:22] LABS: Cannabinoid Screen,Urine Negative ng/ml (<50)
[2021-11-06 17:23] LABS: Cocaine Screen,Urine Negative ng/ml (<300); Methadone Screen,Urine Negative ng/ml (<300)
[2021-11-06 17:24] LABS: Opiate Screen,Urine Negative ng/ml (<300); Phencyclidine Screen,Urine Negative ng/ml (<25)
== END ==
PROVIDERS: PCP Family Medicine; Visit Provider Family Medicine
DX: M54.50 Low back pain, unspecified (principal)
CPT/HCPCS: 80305

== ENCOUNTER → 2022-01-04 14:00 | Outpatient (CLI) | payer MEDICAID, SELFPAY ==
[2022-01-04 13:27] LABS: Amphetamine/Metha Screen,Urine Negative ng/ml (<1000)
[2022-01-04 13:28] LABS: Barbiturates Screen,Urine Negative ng/ml (<200); Benzodiazepines Screen,Urine Negative ng/ml (<200)
[2022-01-04 13:29] LABS: Cannabinoid Screen,Urine Negative ng/ml (<50)
[2022-01-04 13:30] LABS: Cocaine Screen,Urine Negative ng/ml (<300); Methadone Screen,Urine Negative ng/ml (<300)
[2022-01-04 13:31] LABS: Opiate Screen,Urine Positive ng/ml (<300); Phencyclidine Screen,Urine Negative ng/ml (<25)
== END ==
PROVIDERS: PCP Family Medicine; Visit Provider Family Medicine
DX: Z79.899 Other long term (current) drug therapy (principal)
CPT/HCPCS: 80305

== ENCOUNTER → 2022-01-05 11:40 | Outpatient (CLI) | payer MEDICAID, SELFPAY ==
--- NOTE | 2022-01-05 11:44 | XR_ITS ---
FINAL REPORT CLINICAL HISTORY: knee pain COMPARISON: 01/12/2021 FINDINGS: LEFT KNEE Four views of the left knee were obtained. There is no acute fracture or dislocation. There are severe degenerative changes. Degenerative changes laterally have progressed. There is a moderate joint effusion. There are multiple chronic calcifications lateral to the lateral joint space. IMPRESSION: Severe degenerative changes which have progressed laterally. Reviewed, Interpreted and Dictated by Toni Perez III, MD Transcribed by Grace Garvey Authenticated and [facility]
== END ==
PROVIDERS: PCP Family Medicine; Visit Provider Orthopaedic Surgery
DX: M25.562 Pain in left knee (principal)
CPT/HCPCS: 73564

== ENCOUNTER 2022-01-05 12:43 | Outpatient (RCR) | payer MEDICAID, SELFPAY | END 2022-01-05 13:50 | disposition home or self-care (01) | LOC: PT 12:43 | PROVIDERS: Visit Provider Orthopaedic Surgery | DX: M25.562 Pain in left knee (principal) | CPT/HCPCS: 97760 ==

== ENCOUNTER 2022-01-05 13:26 | Outpatient (RCR) | payer MEDICAID, SELFPAY | END 2022-01-05 14:30 | disposition home or self-care (01) | LOC: PT 13:26 | PROVIDERS: Visit Provider Orthopaedic Surgery | DX: M25.561 Pain in right knee (principal) | CPT/HCPCS: 20560 ==

== ENCOUNTER → 2022-01-15 10:16 | Outpatient (CLI) | payer MEDICAID, SELFPAY ==
[2022-01-15 15:41] LABS: Benzodiazepines Screen,Urine Negative ng/ml (<200)
[2022-01-15 15:42] LABS: Amphetamine/Metha Screen,Urine Negative ng/ml (<1000); Barbiturates Screen,Urine Negative ng/ml (<200)
[2022-01-15 15:43] LABS: Cannabinoid Screen,Urine Negative ng/ml (<50)
[2022-01-15 15:44] LABS: Cocaine Screen,Urine Negative ng/ml (<300); Methadone Screen,Urine Negative ng/ml (<300)
[2022-01-15 15:45] LABS: Opiate Screen,Urine Positive ng/ml (<300)
[2022-01-15 15:46] LABS: Phencyclidine Screen,Urine Negative ng/ml (<25)
== END ==
PROVIDERS: PCP Family Medicine; Visit Provider Family Medicine
DX: M54.50 Low back pain, unspecified (principal)
CPT/HCPCS: 80305

== ENCOUNTER → 2022-02-02 10:48 | Outpatient (CLI) | payer MEDICAID, SELFPAY ==
[2022-02-02 15:28] LABS: Amphetamine/Metha Screen,Urine Negative ng/ml (<1000)
[2022-02-02 15:29] LABS: Barbiturates Screen,Urine Negative ng/ml (<200); Benzodiazepines Screen,Urine Negative ng/ml (<200)
[2022-02-02 15:30] LABS: Cannabinoid Screen,Urine Negative ng/ml (<50)
[2022-02-02 15:31] LABS: Cocaine Screen,Urine Negative ng/ml (<300); Methadone Screen,Urine Negative ng/ml (<300)
[2022-02-02 15:32] LABS: Opiate Screen,Urine Negative ng/ml (<300)
[2022-02-02 15:33] LABS: Phencyclidine Screen,Urine Negative ng/ml (<25)
== END ==
PROVIDERS: PCP Family Medicine; Visit Provider Family Medicine
DX: R52 Pain, unspecified (principal)
CPT/HCPCS: 80305

== ENCOUNTER → 2022-03-02 14:40 | Outpatient (CLI) | payer OTHER, SELFPAY ==
[2022-03-02 13:52] LABS: Amphetamine/Metha Screen,Urine Negative ng/ml (<1000)
[2022-03-02 13:53] LABS: Barbiturates Screen,Urine Negative ng/ml (<200)
[2022-03-02 13:54] LABS: Benzodiazepines Screen,Urine Negative ng/ml (<200)
[2022-03-02 13:55] LABS: Cannabinoid Screen,Urine Negative ng/ml (<50); Cocaine Screen,Urine Negative ng/ml (<300)
[2022-03-02 13:56] LABS: Methadone Screen,Urine Negative ng/ml (<300); Opiate Screen,Urine Negative ng/ml (<300)
[2022-03-02 13:57] LABS: Phencyclidine Screen,Urine Negative ng/ml (<25)
== END ==
PROVIDERS: PCP Family Medicine; Visit Provider Family Medicine
DX: Z79.899 Other long term (current) drug therapy (principal)
CPT/HCPCS: 80305

== ENCOUNTER → 2022-03-30 17:47 | Outpatient (CLI) | payer OTHER, SELFPAY ==
[2022-03-30 15:16] LABS: Amphetamine/Metha Screen,Urine Negative ng/ml (<1000)
[2022-03-30 15:17] LABS: Barbiturates Screen,Urine Negative ng/ml (<200); Benzodiazepines Screen,Urine Negative ng/ml (<200)
[2022-03-30 15:18] LABS: Cannabinoid Screen,Urine Negative ng/ml (<50)
[2022-03-30 15:19] LABS: Cocaine Screen,Urine Negative ng/ml (<300); Methadone Screen,Urine Negative ng/ml (<300)
[2022-03-30 15:20] LABS: Opiate Screen,Urine Negative ng/ml (<300)
[2022-03-30 15:21] LABS: Phencyclidine Screen,Urine Negative ng/ml (<25)
== END ==
PROVIDERS: PCP Family Medicine; Visit Provider Family Medicine
DX: Z79.899 Other long term (current) drug therapy (principal)
CPT/HCPCS: 80305

== ENCOUNTER → 2022-04-27 14:41 | Outpatient (CLI) | payer OTHER, SELFPAY ==
[2022-04-27 17:18] LABS: Amphetamine/Metha Screen,Urine Negative ng/ml (<1000); Barbiturates Screen,Urine Negative ng/ml (<200)
[2022-04-27 17:19] LABS: Benzodiazepines Screen,Urine Negative ng/ml (<200)
[2022-04-27 17:20] LABS: Cannabinoid Screen,Urine Negative ng/ml (<50); Cocaine Screen,Urine Negative ng/ml (<300)
[2022-04-27 17:21] LABS: Methadone Screen,Urine Negative ng/ml (<300)
[2022-04-27 17:22] LABS: Opiate Screen,Urine Negative ng/ml (<300)
[2022-04-27 17:23] LABS: Phencyclidine Screen,Urine Negative ng/ml (<25)
== END ==
PROVIDERS: PCP Family Medicine; Visit Provider Family Medicine
DX: Z79.899 Other long term (current) drug therapy (principal)
CPT/HCPCS: 80305

== ENCOUNTER → 2022-05-16 09:15 | Outpatient (CLI) | payer OTHER, SELFPAY | PROVIDERS: PCP Family Medicine; Visit Provider Orthopaedic Surgery Adult Reconstructive Orthopaedic Surgery | DX: Z01.812 Encounter for preprocedural laboratory examination (principal); Z11.52 Encounter for screening for COVID-19 | CPT/HCPCS: C9803; U0003; U0005 ==

== ENCOUNTER 2022-06-15 07:49 | Outpatient (RCR) | payer OTHER, SELFPAY ==
--- NOTE | 2022-06-15 08:57 | HMH.PTOPEV ---
PT Outpatient Evaluation Rehab PT Outpatient Evaluation Start: 06/15/22 07:52 Freq: Status: Active Protocol: Document 06/15/22 07:57 PRITI (Rec: 06/15/22 08:57 BRAYDENKLAUS [id number]) E-signed By Bettye Corcoran, PT Outpatient Therapy Subjective History Subjective History Pt presents to the PT clinic s /p L knee replacement on [address] Carroll. Pt reports she went home alone following. Pt states she had one follow-up appointment with her surgeon, states they were happy with her incision but were concerned about her range of motion. Pt reports she did not have HHPT following the surgery. Pt reports she was having L knee pain and difficulty walking prior to having surgery. Pt reports she has been using her rollator for walking. Pt states that her knee feels very stiff and she is fearful of moving it because she does not trust it. Chief Complaint Pain,Stiff,Swelling,Weakness Symptom Type Ache,Sharp Symptoms Relieved By Rest/Positioning,OTC Meds, Prescription Meds,Activity, Elevation Symptoms Aggravated By Standing,Bending/Stooping, Physical Activity,Twisting, Walking,Lifting Prior Functional Limitations Lifting,Housework,Sleeping, Standing,Squatting,Recreation Activity,Walking,Stairs, Balance,Bending/Stooping Current Functional Limitations Lifting,Housework,Dressing, Sleeping,Standing,Sitting, Squatting,Recreation Activity, Walking,Stairs,Balance,Bending /Stooping Symptom Description Constant but Variable Level of pain today (0-10) 5 Pain scale - at its best (0-10) 3 Pain scale - at its worst (0-10) 9 Hip/Knee Eval Gait Observation General Gait Pattern Observation Antalgic Gait,Hips Posterior to LAUREL,Decrease Weight Bear (L ),Decrease Stride Lngth (L) Assistive Device Assistive Devices Rolling / Wheeled Walker Palpation Tenderness left Knee Palpation Finding Tenderness,Muscle Guardin
== END 2022-06-15 07:50 | disposition home or self-care (01) ==
LOC: PT 07:49
PROVIDERS: PCP Family Medicine; Visit Provider Family Medicine
DX: M25.562 Pain in left knee (principal); Z96.652 Presence of left artificial knee joint
CPT/HCPCS: 97163

== ENCOUNTER → 2022-06-15 08:56 | Outpatient (CLI) | payer OTHER, SELFPAY ==
--- NOTE | 2022-06-15 09:03 | XR_ITS ---
FINAL REPORT CLINICAL HISTORY: back pain FINDINGS: RIGHT HIP Two views of the right hip demonstrate no acute fracture or dislocation. There is long segment right hip prosthesis with side plate and screws securing the greater trochanter. The joint spaces appear normal. The visualized bony structures are well aligned. No soft tissue abnormality is seen. IMPRESSION: No acute bony abnormality. Reviewed, Interpreted and Dictated by Jonathon Nuñez MD Transcribed by Marylou Desir Authenticated and [facility]
--- NOTE | 2022-06-15 09:03 | XR_ITS ---
FINAL REPORT CLINICAL HISTORY: hip pain FINDINGS: LUMBAR SPINE Three views were obtained. There is no acute fracture. There is no malalignment. There is mild facet sclerosis in the lower lumbar spine. There is no soft tissue abnormality. IMPRESSION: Mild facet sclerosis in the lower lumbar spine. No acute bony abnormality. Reviewed, Interpreted and Dictated by Jonathon Nuñez MD Transcribed by Grace Garvey Authenticated and [facility]
== END ==
PROVIDERS: PCP Family Medicine; Visit Provider Family Medicine
DX: M25.551 Pain in right hip (principal); Z96.641 Presence of right artificial hip joint; G89.29 Other chronic pain; M54.9 Dorsalgia, unspecified; M54.50 Low back pain, unspecified
CPT/HCPCS: 72100; 73502